=== PATIENT | female | born 1955 | race Caucasian/White ===

== ENCOUNTER → 2018-04-19 13:39 | Outpatient (POV) | payer SELFPAY | PROVIDERS: Visit Provider Dermatology | DX: Z00.00 Encounter for general adult medical examination without abnormal findings (principal) ==

== ENCOUNTER 2018-10-04 11:55 | Observation (INO) ==
--- NOTE | 2018-10-04 11:59 | Emergency Department Note ---
ED Disposition Clinical Impression: Chest pain, precordial, Hyponatremia, Hypokalemia Disposition: Admitted as Observation Condition on Discharge: Good - Critical Care Critical Care Time: No Attestation: On , the high probability of a clinically significant, sudden or life threatening deterioration of the following system(s) required my full and direct attention, intervention and personal management. The time I documented below is in addition to time spent performing reported procedures but includes the following listed in this critical care notation. Medical Decision Making - Aguilar Inquiry Pt receiving controlled substance: No Vital Signs: 10/04/18 12:00 10/04/18 12:25 10/04/18 13:30 Temperature 99.4 F Temperature Source Oral Pulse Rate Pulse Rate [Left Radial] 96 H 93 H 86 Respiratory Rate 16 19 18 Blood Pressure Blood Pressure [Right Arm] 170/63 H 138/72 156/72 H Blood Pressure Mean [Right Arm] 98 94 100 Blood Pressure Source Blood Pressure Source [Right Arm] Automatic Cuff Automatic Cuff Automatic Cuff Blood Pressure Position Blood Pressure Position [Right Arm] Sitting Sitting Sitting 02 Sat by Pulse Oximetry 98 96 95 Oxygen Delivery Method Room Air Room Air Room Air 10/04/18 14:30 10/04/18 15:23 10/04/18 15:51 Temperature 98 F Temperature Source Oral Pulse Rate 78 Pulse Rate [Left Radial] 87 89 Respiratory Rate 16 18 16 Blood Pressure 161/86 H Blood Pressure [Right Arm] 138/71 144/75 H Blood Pressure Mean [Right Arm] 93 98 Blood Pressure Source Automatic Cuff Blood Pressure Source [Right Arm] Automatic Cuff Automatic Cuff Blood Pressure Position Sitting Blood Pressure Position [Right Arm] Sitting Sitting 02 Sat by Pulse Oximetry 97 94 L Oxygen Delivery Method Room Air Room Air Room Air - Lab Data Lab Results 10/04/18 11:55: WBC 8.7, RBC 4.79, Hgb 14.1, Hct 42.9, MCV 89.6, MCH 29.3, MCHC 32.7, RDW 13.3, Plt Count 259, MPV 7.6, Neut % (Auto) 72.1, Lymph % (Auto) 20.7, Granite % (Auto) 6.4, Eos % (Auto) 0.6, Baso % (Auto) 0.3, Neut # (Auto) 6.3, Lymph # (Auto) 1.8, Gran[place] # (Auto) 0.6, Eos # (Auto) 0.1, Baso # (Auto) 0.0 10/04/18 11:55: Sodium 127 L, Potassium 3.3 L, Chloride 89 L, Carbon Dioxide 30, Anion Gap 11.3, BUN 8, Creatinine 0.56, Estimated Creat Clear 47, Estimated GFR 109, Est GFR ( Amer) 132, Glucose 126 H, Calcium 9.4, Troponin I 0.03 10/04/18 11:55: TSH 1.02, Free T4 Index 4.0 L, Thyroxine (T4) 10.3, T3 Uptake 39 10/04/18 11:55: D-Dimer < 100 10/04/18 14:56: Troponin I 0.11 H Result diagrams: 10/04/18 11:55 10/04/18 11:55 Orders (Tests/Meds): ED MEDICATIONS Generic Name Dose Route Start Last Admin Trade Name Freq PRN Reason Stop Dose Admin Acetaminophen 650 mg 10/04/18 15:13 Acetaminophen 325mg Tab PO 11/03/18 15:12 Q4HP PRN As Needed for Fever or Pain Hydrochlorothiazide 12.5 mg 10/05/18 09:00 Hctz 12.5mg Capsule PO 11/04/18 08:59 DAILY DILCIA Sodium Chloride 1,000 mls @ 50 mls/hr 10/04/18 16:45 10/04/18 16:53 Sod Chlor 0.9% 1000ml Bag IV 11/03/18 16:44 50 mls/hr .Q20H DILCIA Administration Irbesartan 300 mg 10/05/18 09:00 Avapro 300mg Tablet PO 11/04/18 08:59 DAILY DILCIA Lorazepam 1 mg 10/04/18 18:15 Ativan 1mg Tablet PO 11/03/18 18:14 ONCE PRN Anxiety Ondansetron HCl 4 mg 10/04/18 15:13 Zofran 4mg/2ml Vial IV 11/03/18 15:12 Q8HP PRN Nausea Discontinued Medications Generic Name Dose Route Start Last Admin Trade Name Freq PRN Reason Stop Dose Admin Lorazepam 1 mg 10/04/18 15:38 10/04/18 15:48 Ativan 1mg Tablet PO 10/04/18 15:39 1 mg ONCE ONE Administration Potassium Chloride 40 meq 10/04/18 12:32 10/04/18 13:24 Klor-Con 20meq Tablet PO 10/04/18 12:33 40 meq ONCE ONE Administration ORDERS Category Date Time Status Consult to Cardiology [CONS] Routine Cons 10/04/18 15:13 Active Basic Metabolic Panel AMLAB Lab 10/05/18 06:00 Ordered Troponin I Q3H Lab 10/04/18 21:15 Ordered ECG Request by /Sanju Stat Y 10/04/18 11:56 Stop Req - Radiology Data #1 Image(s): Chest Image Reviewed: Yes I have reviewed radiologist's interpretation IMPRESSION: No acute finding. Nodularity left lung base. Stability may be confirmed with follow-up Dictated by: Sekou Quijano MD 10/04/2018 13:03 - ECG Data Tracing #1 EKG interpreted by Guido Marie MD: Rhythm: sinus Rate: 92 Phelps: normal Ectopy: none Conduction: normal ST Segment Changes: none T Wave Changes: none Q Waves: none No evidence of acute ischemia or injury Normal electrocardiogram - Physician Consults Physician Consulted: ZAIRA Hastings, for Dr. Grimm Time: 13:33 Reason -: Cardiology Eval/Care Comment/Response: States that patient can be admitted for evaluation or if patient does not want to be admitted, recommends echocardiogram and second troponin and follow-up as an outpatient if normal. I discussed with patient and , they prefer admission. Call placed to medicine service call. Additional Consult: Maren Time: 15:03 Reason -: Admission Comment/Response: Agrees to admit the patient to the hospital. We discussed the patient's clinical information, including history, exam, laboratory and radiology results and ED course. Per hospital procedure, I will write temporary bridge inpatient orders on the patient. Specific orders requested by the admitting physician: Serial troponins. Hold antihypertensive at this time due to electrolyte abnormalities, he will review meds. - Reevaluation(s) Time: 15:39 Reevaluation #1: Patient states she needs something for her nerves so that she can sleep. Would like it right now. - HARJIT Score for Non-Stemi Age of Patient: 60-69 years old Heart Rate: 90-109 bpm Systolic Blood Pressure: 160-199 mmHg Serum Creatinine: 0.40-0.79 mg/dl CHF Killip Class: I-No CHF Other Risk Factors: None Non-Stemi Risk Score: 87 General Adult HPI - General Stated complaint: Chest Pain Time Seen by Provider: 10/04/18 11:58 - History of Present Illness HPI narrative: Brought in by ambulance for chest discomfort. States that since yesterday evening she has had a sensation that her heart is racing and has a discomfort in the center of her chest that feels like a pressure. Some increase with a deep breath. States symptoms have been present ever since onset, and not going completely away, but waxing and waning. Says that she was not able to sleep all night due to the symptoms. She also feels anxious. She says she feels short of breath off and on. She has no known heart problems. Non-smoker. She has prediabetes, no medications for that. She is treated for hypertension. Denies hyperlipidemia. Family history positive for coronary artery disease in brother's parents. She does not think any of their problem started at a young age. She has never had a stress test or heart catheter her knowledge. - Related Data Home Medications Medication Instructions Recorded Confirmed Fexofenadine HCl [Allergy Relief] 180 mg PO DAILYP PRN 10/04/18 10/04/18 Valsartan/Hydrochlorothiazide 1 tab PO DAILY 10/04/18 10/04/18 [Valsartan-Hctz 320-12.5 mg Tab] Allergies Allergy/AdvReac Type Severity Reaction Status Date / Time No Known Allergies Allergy Verified 10/04/18 12:06 [facility] History - Hepatitis A Screen Attestation statement:: This patient has been screened for Hepatitis A risk factors. Medical History: Reports:: Hypertension Denies:: Congestive Heart Failure, Coronary Artery Disease, Diabetes Mellitus Type 1, Diabetes Mellitus Type 2, Hyperlipidemia Other Medical History: Reports: Thyroid Disease (nodule) ROS Obtained: Yes All systems reviewed & no additional complaints - Constitutional Constitutional: Denies fever(s) - Cardiovascular Cardiovascular: Reports chest pain, Denies diaphoresis, Reports rapid heart rate - Respiratory Respiratory: No cough, Yes dyspnea - Gastrointestinal Gastrointestingal: Denies: abdominal pain, diarrhea, nausea, vomiting Physical Exam - General General appearance: alert, in no apparent distress - Head Head exam: atraumatic, normocephalic - Eye Eye exam: Present: normal appearance, EOMI - ENT ENT exam: Present: mucous membranes moist - Neck Neck exam: Present: normal inspection, trachea midline - Chest Chest inspection: Present: normal inspection, symmetric chest wall rise - Respiratory Respiratory exam: Present: normal lung sounds bilaterally. Absent: respiratory distress - Cardiovascular Cardiovascular exam: Present: regular rate, normal rhythm, normal heart sounds - Abdominal Exam Abdominal exam: Present: soft, normal bowel sounds. Absent: distention, tenderness - Extremities Exam Extremities exam: Present: normal inspection. Absent: calf tenderness - Neurological Exam Neurological exam: Present: alert, oriented X3 - Psychiatric Psychiatric exam: Present: normal affect, normal mood - Skin Skin exam: Present: warm, dry
[2018-10-04 12:14] LABS: Basophils % 0.3 % (0.1-2.0); Eosinophils # 0.1 K/mm3 (0.0-0.4); Eosinophils % 0.6 % (0.1-12.0); Hematocrit 42.9 % (37.0-47.0); Hemoglobin 14.1 g/dL (12.2-16.2); Lymphocytes # 1.8 K/mm3 (0.7-4.5); Lymphocytes % 20.7 % (10-50); Mean Corpuscular HGB Conc 32.7 g/dL (31.8-35.4); Mean Corpuscular Volume 89.6 fl (81-99); Mean Platelet Volume 7.6 fl (7.4-10.4); Monocytes # 0.6 K/mm3 (0.1-1.0); Monocytes % 6.4 % (1.7-9.3); Neutrophils # 6.3 K/mm3 (1.8-7.8); Neutrophils % 72.1 % (37.0-80.0); Platelet Count 259 K/mm3 (142-424); Red Blood Count 4.79 M/mm3 (4.20-5.40); Red Cell Distribution Width 13.3 % (11.5-17.5); White Blood Count 8.7 K/mm3 (4.8-10.8)
[2018-10-04 12:28] LABS: Anion Gap 11.3 mEq/L (5-15); Calcium 9.4 mg/dL (8.5-10.1)
[2018-10-04 12:35] LABS: Thyroid Stimulating Hormone 1.02 uIU/ml (0.358-3.740)
--- NOTE | 2018-10-04 15:35 | Pharmacy Consult Notes ---
[facility] Pharmacy VTE Monitoring - Patient Demographics Admission date: 10/04/18 Report Date: 10/04/18 Time: 15:34 Allergies/Adverse Reactions: Patient Allergies No Known Allergies Allergy (Verified 10/04/18 12:06) Height: 1.57 m Weight: 52.163 kg Patient Problems: Current Active Problems Chest pain, precordial (Acute) Hyponatremia (Acute) Hypokalemia (Acute) - VTE Risk Labs: VTE Related Lab Results Hgb 14.1 g/dL (12.2-16.2) 10/04/18 11:55 Hct 42.9 % (37.0-47.0) 10/04/18 11:55 Plt Count 259 K/mm3 (142-424) 10/04/18 11:55 BUN 8 mg/dL (7-18) 10/04/18 11:55 Creatinine 0.56 mg/dL (0.55-1.02) 10/04/18 11:55 Estimated Creat Clear 47 mL/min (50-200) 10/04/18 11:55 - Prophylaxis VTE Prophylaxis Ordered?: Yes Types of VTE Prophylaxis: TEDS Knee High Location of Applied Device: Bilateral Lower Extremeties
--- NOTE | 2018-10-04 16:59 | Consult Report ---
History of Present Illness Consult date: 10/04/18 Requesting physician: Real Engel Consult reason: chest pain Chief complaint: Chest pain Additional Medical History:: 1. Family history of coronary artery disease in their 50s and 60s 2. Hypertension, treated for many years 3. Prediabetes, diagnosed approximately 3 years ago, treated with weight loss and dietary changes 4. Remote tobacco use, [id number]-aewk history, discontinued 13 years ago 5. Anxiety History of present illness: 62-year-old white female transported to the emergency department via EMS due to recurrent chest pain. Chest pain described as substernal pressure and pain sensation without radiation. She does note some diaphoresis and nausea without vomiting or diarrhea. Symptoms started yesterday and would wax and wane with exercise or activity and improve with rest. No prior history of coronary artery disease. She does endorse a significant amount of anxiety over the chest pain which prompted calling EMS for transportation. EKG in the ER was sinus rhythm with no acute ST segment changes. Initial troponin is within normal limits. Cardiology was consulted for evaluation and recommendations. [facility] History Medical History: Reports:: Hypertension Denies:: Congestive Heart Failure, Coronary Artery Disease, Diabetes Mellitus Type 1, Diabetes Mellitus Type 2, Hyperlipidemia *Have you ever received a pneumonia vaccine?: No *Have you received a flu vaccine this season?: Yes Other Medical History: Reports: Thyroid Disease (nodule) - *Social History Alcohol Intake: never *Occupational Status:: other *Travel in the last 8 weeks: None Family Hx:: Coronary Artery Disease Meds Home Medications Medication Instructions Recorded Confirmed Type Fexofenadine HCl [Allergy Relief] 180 mg PO DAILYP PRN 10/04/18 10/04/18 History Valsartan/Hydrochlorothiazide 1 tab PO DAILY 10/04/18 10/04/18 History [Valsartan-Hctz 320-12.5 mg Tab] Allergies Allergy/AdvReac Type Severity Reaction Status Date / Time No Known Allergies Allergy Verified 10/04/18 12:06 Review of Systems - *Cardiovascular Reports chest pain, Denies shortness of breath, Denies slow heart rate - *Respiratory Denies cough, Denies shortness of breath - *Gastrointestinal Reports nausea, Denies abdominal pain, Denies vomiting - *Genitourinary Denies blood in urine - *Musculoskeletal Denies joint pain, Denies back pain - *Neurologic Denies unsteadiness, Denies dizziness, Denies tingling, Denies tremor(s) Exam Vital signs and Labs for Last 24 Hours: Temp Pulse Resp BP Pulse Ox 98.3 F 91 H 18 146/83 H 97 10/04/18 16:06 10/04/18 16:06 10/04/18 16:06 10/04/18 16:06 10/04/18 16:06 Laboratory Results - last 24 hr 10/04/18 11:55: WBC 8.7, RBC 4.79, Hgb 14.1, Hct 42.9, MCV 89.6, MCH 29.3, MCHC 32.7, RDW 13.3, Plt Count 259, MPV 7.6, Neut % (Auto) 72.1, Lymph % (Auto) 20.7, Price % (Auto) 6.4, Eos % (Auto) 0.6, Baso % (Auto) 0.3, Neut # (Auto) 6.3, Lymph # (Auto) 1.8, Price # (Auto) 0.6, Eos # (Auto) 0.1, Baso # (Auto) 0.0 10/04/18 11:55: Sodium 127 L, Potassium 3.3 L, Chloride 89 L, Carbon Dioxide 30, Anion Gap 11.3, BUN 8, Creatinine 0.56, Estimated Creat Clear 47, Estimated GFR 109, Est GFR ( Amer) 132, Glucose 126 H, Calcium 9.4, Troponin I 0.03 10/04/18 11:55: TSH 1.02, Free T4 Index 4.0 L, Thyroxine (T4) 10.3, T3 Uptake 39 10/04/18 11:55: D-Dimer < 100 I & O for Last 24 hours: Intake & Output 10/02/18 10/03/18 10/04/18 10/05/18 11:59 11:59 11:59 11:59 Weight 112 lb 9 oz - *Routine HEENT Exam Head: Present: normocephalic Eye: Present: EOMI, PERRL ENT: Present: mucous membranes moist - *Routine Neck Exam Present: supple. Absent: JVD, carotid bruit - *Routine Respiratory Exam Present: CTA bilaterally. Absent: accessory muscle use, rales, rhonchi, wheezes - *Routine Cardiovascular Exam Present: RRR. Absent: murmur, gallop, rubs - *Routine Abdominal Exam Present: soft. Absent: tenderness, distended, guarding - *Routine Extremities Exam Absent: edema, calf tenderness - *Routine Neurological Exam Present: alert, oriented X3, moving all extremities Assessment and Plan (1) Chest pain, precordial Current visit: Yes Status: Acute Category: Medical Code(s): R07.2 - Precordial pain (2) Hypertension Current visit: Yes Status: Acute Category: Medical Code(s): I10 - Essential (primary) hypertension (3) Hypokalemia Current visit: Yes Status: Acute Category: Medical Code(s): E87.6 - Hypokalemia (4) Hyponatremia Current visit: Yes Status: Acute Category: Medical Code(s): E87.1 - Hypo- osmolality and hyponatremia - Assessment and plan all Dx Assessment and Plan for all problems:: 1. 62-year-old white female with recurrent chest pain and Ann score of 87. Patient with cardiac risk factors of family history, hypertension, prediabetes and remote tobacco use. Preliminary echocardiogram showed preserved left ventricular ejection fraction. Initial troponin is normal with no acute EKG changes. Would recommend proceeding with exercise Myoview stress testing tomorrow for further evaluation and risk stratification. We will hold off on adding beta-panfilo therapy in order to achieve target heart rate. Consider Norvasc therapy if needed for chest pain but currently patient is pain-free. 2. Further recommendations to follow pending above results.
--- NOTE | 2018-10-04 18:09 | History & Physical Report ---
*Admission Date: 10/04/18 *Chief complaint: chest pain *History of present illness: Ms. Marie is a 62-year-old white female who was brought to the ER by ambulance due to recurrent chest pain. She states that she had a stressful situation today causing significant anxiety preceding her onset of chest pain. Chest pain described as substernal pressure and pain sensation without radiation. She does note some diaphoresis and nausea with 2 episodes of heaving/vomiting. Denies any diarrhea. Symptoms started yesterday and would wax and wane with exercise or activity and improve with rest. No prior history of coronary artery disease. EKG in the ER was sinus rhythm with no acute ST segment changes. Initial troponin is within normal limits. Cardiology was consulted for evaluation and recommendations. Medicine was consulted for admission. Cardiology saw the patient this afternoon and recommended serial troponins. Will monitor overnight and reassess in the morning. Patient denies, at time of assessment on the floor, chest pain, shortness of breath, nausea, vomiting. Feels at baseline right now. Does state she is having some anxiety however and has asked for some as needed medication like she gone the ER to help if she has issues overnight. [facility] History I have reviewed the patient's past medical history: Yes Medical History: Reports:: Hypertension Denies:: Cancer, Congestive Heart Failure, Coronary Artery Disease, Diabetes Mellitus Type 1, Diabetes Mellitus Type 2, Hyperlipidemia, MRSA *Have you ever received a pneumonia vaccine?: No *Have you received a flu vaccine this season?: Yes Other Medical History: Reports: Thyroid Disease (nodule) Other Surgeries: Yes: Cholecystectomy Amputation: No Fractures: No - *Social History Educational Level: Attended High School Smoking Status: Former smoker Smoking End Date: 2002 Alcohol Intake: never *Occupational Status:: other Housing: house Household Members: spouse *Travel in the last 8 weeks: None - Psychiatric History Expresses thoughts of harming self/others: None Suicide Plan Description: No Plan Family Hx:: Coronary Artery Disease Review of Systems - Review of Systems Review of systems:: pertinent systems reviewed and negative unless documented below - *Neurologic Denies unsteadiness, Denies dizziness, Denies tingling, Denies tremor(s) Meds Home Medications Medication Instructions Recorded Confirmed Type Fexofenadine HCl [Allergy Relief] 180 mg PO DAILYP PRN 10/04/18 10/04/18 History Valsartan/Hydrochlorothiazide 1 tab PO DAILY 10/04/18 10/04/18 History [Valsartan-Hctz 320-12.5 mg Tab] Allergies Allergy/AdvReac Type Severity Reaction Status Date / Time No Known Allergies Allergy Verified 10/04/18 12:06 Exam Vital signs and Labs for Last 24 Hours: Temp Pulse Resp BP Pulse Ox 98.3 F 91 H 18 146/83 H 97 10/04/18 16:06 10/04/18 17:06 10/04/18 17:06 10/04/18 16:06 10/04/18 17:06 Laboratory Results - last 24 hr 10/04/18 11:55: WBC 8.7, RBC 4.79, Hgb 14.1, Hct 42.9, MCV 89.6, MCH 29.3, MCHC 32.7, RDW 13.3, Plt Count 259, MPV 7.6, Neut % (Auto) 72.1, Lymph % (Auto) 20.7, [place] % (Auto) 6.4, Eos % (Auto) 0.6, Baso % (Auto) 0.3, Neut # (Auto) 6.3, Lymph # (Auto) 1.8, [place] # (Auto) 0.6, Eos # (Auto) 0.1, Baso # (Auto) 0.0 10/04/18 11:55: Sodium 127 L, Potassium 3.3 L, Chloride 89 L, Carbon Dioxide 30, Anion Gap 11.3, BUN 8, Creatinine 0.56, Estimated Creat Clear 47, Estimated GFR 109, Est GFR ( Amer) 132, Glucose 126 H, Calcium 9.4, Troponin I 0.03 10/04/18 11:55: TSH 1.02, Free T4 Index 4.0 L, Thyroxine (T4) 10.3, T3 Uptake 39 10/04/18 11:55: D-Dimer < 100 I & O for Last 24 hours: Intake & Output 10/01/18 10/02/18 10/03/18 10/04/18 23:59 23:59 23:59 23:59 Intake Total 360 / 360 Balance 360 / 360 Weight 51.057 kg - *Routine HEENT Exam Head: Present: normocephalic Eye: Present: EOMI, PERRL ENT: Present: mucous membranes moist - *Routine Neck Exam Present: supple. Absent: lymphadenopathy - *Routine Respiratory Exam Present: CTA bilaterally - *Routine Cardiovascular Exam Present: RRR - *Routine Abdominal Exam Present: soft, normoactive bowel sounds. Absent: tenderness - *Routine Extremities Exam Absent: cyanosis, clubbing, edema - *Routine Skin Exam Present: warm. Absent: rash - *Routine Neurological Exam Present: alert, oriented X3 Assessment and Plan (1) Chest pain, precordial Current visit: Yes Status: Acute Category: Medical Code(s): R07.2 - Precordial pain (2) Hypertension Current visit: Yes Status: Acute Category: Medical Code(s): I10 - Essential (primary) hypertension (3) Hypokalemia Current visit: Yes Status: Acute Category: Medical Code(s): E87.6 - Hypokalemia (4) Hyponatremia Current visit: Yes Status: Acute Category: Medical Code(s): E87.1 - Hypo- osmolality and hyponatremia - Assessment and plan all Dx Assessment and Plan for all problems:: Admitted to medicine for serial troponins. Address electrolyte disturbances with fluids. Ativan for anxiety x1. Cardiology consulted. Further management pending overnight monitoring and lab results. If remains stable, would benefit from outpatient stress test and optimization of medical management/anxiety.
[2018-10-05 06:25] LABS: Anion Gap 8.2 mEq/L (5-15); Calcium 9.1 mg/dL (8.5-10.1)
--- NOTE | 2018-10-05 06:26 | Cardiology Report ---
APPROVED REPORT EXAM: Comprehensive 2D, Doppler, and color-flow Echocardiogram [employer]visor [employer]: Fernanda Kessler RT(R) Ht: 5 ft 2 in Wt: 115lbs BSA: 1.51 BP: 53218/72 mmHg Indications: Chest Pain, Palpitations, Dyspnea, Fatigue, Hypertension/HDD Left Ventricle Left ventricle is normal size Estimated ejection fraction of 55% Left ventricular wall thickness is normal No regional wall motion abnormality Grade 1 diastolic dysfunction without tissue Doppler evidence of raise left atrial pressure. Right Ventricle Mildly enlarged Normal function Atria Mildly enlarged Aortic Valve Minimally thickened and calcified No aortic stenosis No aortic insufficiency Mitral Valve Mitral valve leaflets are minimally thickened No mitral stenosis Mild mitral regurgitation Tricuspid Valve Normal Mild Pulmonic Valve Not well visualized Great Vessels Normal size Pericardium No significant pericardial effusion 2D Dimensions LVOT 1.90 cm (M/F) 1.5-2.5 M-Mode Dimensions RVDd 1.80 cm (0.9-2.6)LA Diam 2.50 cm (1.9-4.0) LVDd 4.40 cm (3.5-5.7)Ao Diam 2.30 cm (2.0-3.7) LVDs 3.10 cm (3.5-5.7)AV Cusp 1.70 cm (1.5-2.6) IVSd 0.50 cm (0.6-1.1)PWd 0.90 cm (0.6-1.1) EF (Teich) 56.80% FS 29.50% EDV (Teich) 87.70 mLESV (Teich) 37.90 mL LV Diastology E/A Ratio 1.0MED E' 11.00 (< 7 cm/sec) E'/MED E' Ratio8.00 (>14)LAT E' 18.00 (<10 cm/sec) E/LAT E' Ratio 4.90 (>14) Mitral Valve MV E Max Chris. 87.90 (40-130 cm/s)MV A Velocity 88.80 (40-130 cm/s) E/A Ratio 1.00 Conclusion 1. Normal left ventricular size, preserved left ventricular systolic function, visually estimated ejection fraction of 55% with no regional wall motion abnormality. Grade 1 diastolic dysfunction without tissue Doppler evidence of raise left atrial pressure 2. Mildly enlarged right ventricle with normal contractility. 3. Mild mitral and tricuspid regurgitation, tricuspid regurgitation jet velocity is inadequate for calibration of the right ventricular systolic pressure. 4. No significant pericardial effusion noted Electronically signed by : Josh Kearney, 10/05/2018 06:25:14
--- NOTE | 2018-10-05 09:33 | Progress Note ---
Subjective Date: 10/05/18 Time: 09:30 Principal diagnosis: chest pain Interval history: This is 62-year-old white female who presented to the emergency department with complaints of chest pain. She was having substernal chest pressure without any radiation. It was associated with diaphoresis and nausea. The symptoms occurred with exertion and did improve with rest. The patient is undergoing Myoview stress testing this morning to rule out ischemia. She did rule out for an CA. She denies any recurrence of her chest pain or pressure this morning. She denies any shortness of breath or edema. She denies any fever, chills, nausea, vomiting, diarrhea, PND or orthopnea. Exam Vital signs and Labs for Last 24 Hours: Temp Pulse Resp BP Pulse Ox 97.9 F 86 16 132/68 91 L 10/05/18 04:00 10/05/18 04:00 10/05/18 04:00 10/05/18 09:25 10/05/18 04:00 Laboratory Results - last 24 hr 10/04/18 11:55: WBC 8.7, RBC 4.79, Hgb 14.1, Hct 42.9, MCV 89.6, MCH 29.3, MCHC 32.7, RDW 13.3, Plt Count 259, MPV 7.6, Neut % (Auto) 72.1, Lymph % (Auto) 20.7, [place] % (Auto) 6.4, Eos % (Auto) 0.6, Baso % (Auto) 0.3, Neut # (Auto) 6.3, Lymph # (Auto) 1.8, [place] # (Auto) 0.6, Eos # (Auto) 0.1, Baso # (Auto) 0.0 10/04/18 11:55: Sodium 127 L, Potassium 3.3 L, Chloride 89 L, Carbon Dioxide 30, Anion Gap 11.3, BUN 8, Creatinine 0.56, Estimated Creat Clear 47, Estimated GFR 109, Est GFR ( Amer) 132, Glucose 126 H, Calcium 9.4, Troponin I 0.03 10/04/18 11:55: TSH 1.02, Free T4 Index 4.0 L, Thyroxine (T4) 10.3, T3 Uptake 39 10/04/18 11:55: D-Dimer < 100 10/04/18 14:56: Troponin I 0.11 H 10/04/18 18:18: Troponin I 0.11 H 10/04/18 21:22: Troponin I 0.11 H 10/05/18 05:26: Sodium 133 L, Potassium 4.2 D, Chloride 100, Carbon Dioxide 29, Anion Gap 8.2, BUN 7, Creatinine 0.51 L, Estimated Creat Clear 46, Estimated GFR 122, Est GFR ( Amer) 147, Glucose 97 D, Calcium 9.1 I & O for Last 24 hours: Intake & Output 10/02/18 10/03/18 10/04/18 10/05/18 23:59 23:59 23:59 23:59 Intake Total 360 / 360 550 / 550 Balance 360 / 360 550 / 550 Weight 112 lb 9 oz 112 lb 5 oz Narrative: Telemetry strip is sinus rhythm. - *Routine HEENT Exam Head: Present: normocephalic, atraumatic Eye: Present: EOMI, PERRL ENT: Present: mucous membranes moist - *Routine Neck Exam Present: supple, full ROM, normal carotid upstroke. Absent: JVD, carotid bruit, lymphadenopathy - *Routine Respiratory Exam Present: CTA bilaterally - *Routine Cardiovascular Exam Present: RRR, Normal S1, Normal S2. Absent: murmur - *Routine Abdominal Exam Present: soft, normoactive bowel sounds. Absent: tenderness, distended - *Routine Extremities Exam Present: full ROM, pulses intact, normal capillary refill. Absent: cyanosis, clubbing, edema - *Routine Skin Exam Present: intact, warm. Absent: erythema, rash - *Routine Neurological Exam Present: alert, oriented X3, CN II-XII intact. Absent: sensory deficit, motor deficit - Detailed Eye Exam Eyelids: Left normal inspection Progress Note: A&P (1) Chest pain, precordial Status: Acute Current Visit: Yes (2) Hypertension Status: Acute Current Visit: Yes (3) Hypokalemia Status: Acute Current Visit: Yes (4) Hyponatremia Status: Acute Current Visit: Yes Assessment and Plan for All Diagnoses:: Plan: 1. The patient was admitted to the hospital with chest pain. She has ruled out for myocardial infarction. Patient is undergoing a Myoview stress test this morning to rule out ischemia. 2. Her echocardiogram shows normal EF with diastolic dysfunction and mild mitral regurgitation. 3. Her blood pressure is well controlled. 4. Her LDL goal is less than 100. We will add a lipid panel to her blood work. 5. Recommend aspirin 81 mg daily. 6. Further recommendations will be made pending the patient's results of her Myoview stress testing today. Thank you for the opportunity to participate in the care of this patient. Addendum: Myoview stress test was normal. No further recommendations from a cardiac standpoint. Pt stable for discharge home from a cardiac standpoint.
--- NOTE | 2018-10-05 13:23 | Discharge Summary ---
General - General Admission date:: 10/04/18 Discharge date: 10/05/18 HPI HPI: Ms. Marie is a 62-year-old white female who was brought to the ER by ambulance due to recurrent chest pain. She states that she had a stressful situation today causing significant anxiety preceding her onset of chest pain. Chest pain described as substernal pressure and pain sensation without radiation. She does note some diaphoresis and nausea with 2 episodes of heaving/vomiting. Denies any diarrhea. Symptoms started yesterday and would wax and wane with exercise or activity and improve with rest. No prior history of coronary artery disease. EKG in the ER was sinus rhythm with no acute ST segment changes. Initial troponin is within normal limits. Cardiology was consulted for evaluation and recommendations. Medicine was consulted for admission. Cardiology saw the patient this afternoon and recommended serial troponins. Will monitor overnight and reassess in the morning. Patient denies, at time of assessment on the floor, chest pain, shortness of b reath, nausea, vomiting. Feels at baseline right now. Does state she is having some anxiety however and has asked for some as needed medication like she gone the ER to help if she has issues overnight. Hospital Course Hospital Course: Patient was admitted, ruled out for AR by enzyme and EKG criteria. This morning was subjected to Lexiscan nuclear medicine by stress test with excellent results, good flow and no evidence of ischemic heart disease. Patient will be discharged home with blood pressure medication without HCTZ component given her admission hypokalemia and hyponatremia. We will also recommend low-dose aspirin therapy. She has significant anxiety issues and did very well with lorazepam last night and "I need to get a prescription of that for home." I do not think long-term benzodiazepine use is in her best interest, and I have prescribed buspirone 2 times daily as needed. Obviously she will follow-up with her regular physician to make this decision. Objective Vital signs: Temp Pulse Resp BP Pulse Ox 97.9 F 104 H 16 132/68 91 L 10/05/18 04:00 10/05/18 10:27 10/05/18 04:00 10/05/18 09:25 10/05/18 04:00 no acute distress, average body habitus - *Routine HEENT Exam Head: Present: normocephalic Eye: Present: EOMI, PERRL - *Routine Neck Exam Present: supple. Absent: JVD - *Routine Respiratory Exam Present: CTA bilaterally. Absent: accessory muscle use - *Routine Cardiovascular Exam Present: RRR, Normal S1, Normal S2 - *Routine Abdominal Exam Present: soft, normoactive bowel sounds - *Routine Extremities Exam Present: full ROM. Absent: cyanosis, clubbing, edema - *Routine Skin Exam Present: intact - *Routine Neurological Exam Present: alert, oriented X3 Results Labs on day of discharge: Labs from last 24 hours 10/05/18 10/04/18 10/04/18 05:26 21:22 18:18 Sodium 133 L Potassium 4.2 D Chloride 100 Carbon Dioxide 29 Anion Gap 8.2 BUN 7 Creatinine 0.51 L Estimated Creat Clear 46 Estimated GFR 122 Est GFR ( Amer) 147 Glucose 97 D Calcium 9.1 Troponin I 0.11 H 0.11 H 10/04/18 14:56 Sodium Potassium Chloride Carbon Dioxide Anion Gap BUN Creatinine Estimated Creat Clear Estimated GFR Est GFR ( Amer) Glucose Calcium Troponin I 0.11 H DS: Diagnosis - Discharge Diagnosis (1) Chest pain, precordial Status: Resolved (2) Hypertension Status: Chronic (3) Hypokalemia Status: Resolved (4) Hyponatremia Status: Resolved Discharge Plan - Patient Discharge Instructions ACTIVITY: Continue current activity DIET: continue same diet Patient Instructions: DI for Hypokalemia, DI for Hyponatremia, DI for Chest Pain - Follow up Plan Follow up with: Joleen Jacinto [Primary Care Provider] - 10/10/18 Disposition: Home, Self-Fpc Medications: Home Medications Medication Instructions Recorded Confirmed Type Fexofenadine HCl [Allergy Relief] 180 mg PO DAILYP PRN 10/04/18 10/04/18 History Valsartan/Hydrochlorothiazide 1 tab PO DAILY 10/04/18 10/04/18 History [Valsartan-Hctz 320-12.5 mg Tab] Aspirin [Aspir 81] 81 mg PO DAILY #30 tablet. 10/05/18 Rx Buspirone HCl [Buspar 10mg 10 mg PO BID PRN #20 tab 10/05/18 Rx tablet] Valsartan [Valsartan 160mg 320 mg PO DAILY #30 tab 10/05/18 Rx Tablets] Prescriptions/Medication Reconciliation: New Aspirin [Aspir 81] 81 mg PO DAILY #30 tablet. Buspirone HCl [Buspar 10mg tablet] 10 mg PO BID PRN #20 tab PRN Reason: Anxiety Valsartan [Valsartan 160mg Tablets] 320 mg PO DAILY #30 tab Continued Fexofenadine HCl [Allergy Relief] 180 mg PO DAILYP PRN PRN Reason: ALLERGY SYMPTOMS Discontinued Valsartan/Hydrochlorothiazide [Valsartan-Hctz 320-12.5 mg Tab] 1 tab PO DAILY - Problem Reconciliation Problems Reviewed?: Yes
--- NOTE | 2018-10-05 14:21 | Electrocardiograph Report ---
APPROVED REPORT Exam: Resting ECG HR:92 bpm ECG Measurements Heart Rate 92 AXES MI 156 P 78 QRSd 86 QRS 43 QT 388 T68 QTc 479 <Conclusion> Normal sinus rhythm Normal ECG Electronically signed by : Marky Solis, 10/05/2018 13:51:10
[2018-10-05 15:18] LABS: Chol/HDL Ratio 1.9 (1-3.5)
--- NOTE | 2018-10-19 11:45 | Cardiology Report ---
APPROVED REPORT Exam: Exercise Treadmill Technologist: Kenyetta Harvey, Ht: 5 ft 2 in Wt: 112 lbs BSA: 1.49 m2 HR: 91 bpm BP: 143/74 mmHg Rhythm: nsr Indications: Chest pain Medical History Medical History: HTN Medications: Fexofenadine,Valsartan/HCTZ Allergies: No known drug allergies Cardiac Risk Factors: HTN Pretest Chest Pain Characteristics: No chest pain Stress Test Details Test: Tom HR Resting HR: 125 bpmMax Heart Rate (APMHR): 157 bpm Max HR Achieved: 192 bpmTarget HR (85% APMHR): 133 bpm % of APMHR: 122 Recovery HR: 106 bpm HR response to stress: Normal HR response to stress BP Resting BP: 143.0/74 mmHg Max BP: 158/75 mmHg ECG Clinical Stress Symptoms: nausea Exercise duration: 05:30 min Highest Stage Achieved: Exercise capacity: 7.0 METs Stress ECG Conclusion No chest pain. nausea pretest and post test. Allowing for motion artifact the ST response to exercise is normal. Normal GXT - nausea pre and post test. Myoview images reported separately. Electronically signed by : Eyad Grimm, 10/19/2018 11:45:22
== END 2018-10-05 14:15 | disposition home or self-care (01) ==
LOC: ER 11:55 → 2ND 11:55
PROVIDERS: ADMIT Internal Medicine Adolescent Medicine; ATTEND Internal Medicine Adolescent Medicine
CPT/HCPCS: 36415; 71020; 71046; 78452; 80048; 80061; 84436; 84443; 84479; 84484; 85025; 85378; 93005; 93017; 93306; 99284; A9502; G0378

== ENCOUNTER 2020-02-29 22:26 | Emergency (ER) | payer BC, MEDICARE, SELFPAY ==
[2020-02-29 22:42] VITALS: BP 188/88; PULSE 116; RESP 17; TEMP 37.1; O2SAT 98; BMI 21.5
[2020-02-29 22:43] VITALS: BMI 21.5
[2020-02-29 22:54] LABS: Basophils % 0.3 % (0.1-2.0); Eosinophils # 0.1 K/mm3 (0.0-0.4); Eosinophils % 1.2 % (0.1-12.0); Hematocrit 42.8 % (37.0-47.0); Hemoglobin 13.9 g/dL (12.2-16.2); Lymphocytes # 1.2 K/mm3 (0.7-4.5); Lymphocytes % 12.9 % (10-50); Mean Corpuscular HGB Conc 32.5 g/dL (31.8-35.4); Mean Corpuscular Hemoglobin 29.6 pg (27.0-31.2); Mean Corpuscular Volume 91.1 fl (81-99); Mean Platelet Volume 7.6 fl (7.4-10.4); Monocytes # 0.5 K/mm3 (0.1-1.0); Monocytes % 5.3 % (1.7-9.3); Neutrophils # 7.4 K/mm3 (1.8-7.8); Neutrophils % 80.4 % (37.0-80.0); Platelet Count 214 K/mm3 (142-424); Red Cell Distribution Width 13.6 % (11.5-17.5); White Blood Count 9.2 K/mm3 (4.8-10.8)
--- NOTE | 2020-02-29 22:56 | HMH.EDANX ---
ED Disposition Clinical Impression: Acute anxiety, Hyponatremia Disposition: Home, Self-Care Condition on Discharge: Good Instructions: Anxiety Disorders Additional Instructions: please call pcp for follow up Referrals: Joleen Jacinto [Primary Care Provider] - - Critical Care Critical Care Time: No Attestation: On 02/29/20, the high probability of a clinically significant, sudden or life threatening deterioration of the following system(s) required my full and direct attention, intervention and personal management. The time I documented below is in addition to time spent performing reported procedures but includes the following listed in this critical care notation. Medical Decision Making - Medical Records Medical records reviewed: Yes: I reviewed the patient's medical records. - [place] Inquiry Pt receiving controlled substance: No Vital Signs: 02/29/20 22:42 02/29/20 23:31 Temperature 98.7 F Temperature Source Oral Pulse Rate [Right Brachial] 116 H 89 Respiratory Rate 17 18 Blood Pressure [Right Arm] 188/88 H 163/73 H Blood Pressure Mean [Right Arm] 121 103 Blood Pressure Source [Right Arm] Automatic Cuff Automatic Cuff Blood Pressure Position [Right Arm] Sitting Sitting 02 Sat by Pulse Oximetry 98 98 Oxygen Delivery Method Room Air - Lab Data Lab results reviewed: Yes: I reviewed the patient's lab results. Lab Results 02/29/20 22:49: WBC 9.2, RBC 4.70, Hgb 13.9, Hct 42.8, MCV 91.1, MCH 29.6, MCHC 32.5, RDW 13.6, Plt Count 214, MPV 7.6, Neut % (Auto) 80.4 H, Lymph % (Auto) 12.9, [place] % (Auto) 5.3, Eos % (Auto) 1.2, Baso % (Auto) 0.3, Neut # (Auto) 7.4, Lymph # (Auto) 1.2, [place] # (Auto) 0.5, Eos # (Auto) 0.1, Baso # (Auto) 0.0 02/29/20 22:49: Sodium 121 L, Potassium 3.9, Chloride 85 L, Carbon Dioxide 28, Anion Gap 11.9, BUN 14, Creatinine 0.50 L, Estimated Creat Clear 47, Estimated GFR 124, Est GFR ( Amer) 150, Glucose 149 H, Calcium 9.4, Total Bilirubin 1.5 H, AST 33, ALT 24, Alkaline Phosphatase 70, Troponin I < 0.01, Total Protein 8.0, Albumin 4.7, Globulin 3.3 H, Albumin/Globulin Ratio 1.4 02/29/20 22:51: TSH 0.40 L, Thyroxine (T4) 9.3 02/29/20 23:50: Urine Color Yellow, Urine Appearance Clear, Urine pH 7.0, Ur Specific [place] 1.010, Urine Protein Negative, Urine Glucose (UA) Negative, Urine Ketones 1+, Urine Blood 1+, Urine Nitrate Negative, Urine Bilirubin Negative, Urine Urobilinogen 0.2, Ur Leukocyte Esterase Negative, Urine RBC 3-5, Urine WBC Occasional, Ur Squamous Epith Cells 3-5, Urine Bacteria 1+ Result diagrams: 02/29/20 22:49 02/29/20 22:49 Orders (Tests/Meds): ED MEDICATIONS Generic Name Dose Route Start Last Admin Trade Name Freq PRN Reason Stop Dose Admin Sodium Chloride 1,000 mls @ 999 mls/hr 02/29/20 23:45 02/29/20 23:47 Sod Chlor 0.9% 1000ml Bag IV 03/01/20 00:45 999 mls/hr .Q1H1M DILCIA Administration Discontinued Medications Generic Name Dose Route Start Last Admin Trade Name Freq PRN Reason Stop Dose Admin Lorazepam 0.5 mg 03/01/20 00:55 03/01/20 00:56 Lorazepam 0.5mg Tablet PO 03/01/20 00:56 0.5 mg ONCE ONE Administration ORDERS Category Date Time Status Covid-19 Nasal PCR ([facility]) Stat Lab 02/29/20 22:55 Received Troponin I Q3H Lab 03/01/20 02:00 Ordered Troponin I Q3H Lab 03/01/20 05:00 Ordered Medical Decision Narrative: does have low sodium but uncertain as to whether this is causing her sx - discussed with family to discuss meds with her pcp Anxiety HPI - General Chief Complaint: Anxiety Stated Complaint: anxiety, numbness in arms Time Seen by Provider: 02/29/20 22:55 Mode of Arrival: Family Vehicle Source of Information: Patient, Medical Record Limitations: No Limitations Description of Symptoms (Recalled from ER Triage Doc. by RN): pt presents with complaints of worsening anxiety; states she talked to her pcp who put her on vistaril for her nerves to help her sleep. she took one at 2130 without any help.
[2020-02-29 23:02] LABS: Chloride 85 mmol/L (98-107); Potassium 3.9 mmoL/L (3.5-5.1); Sodium 121 mmol/L (136-145)
[2020-02-29 23:04] LABS: Alanine Aminotransferase 24 U/L (12-78); Aspartate Amino Transferase 33 U/L (14-36); Blood Urea Nitrogen 14 mg/dl (7-17); Creatinine Clearance Estimated 47 mL/min (50-200); Estimated Glomerular Filt Rate 124 ml/min (>60); GFR (African American) 150 ML/MIN (>60)
[2020-02-29 23:05] LABS: Albumin Level 4.7 g/dl (3.5-5.0); Albumin/Globulin Ratio 1.4 (1.1-1.8); Alkaline Phosphatase 70 U/L (38-126); Anion Gap 11.9 mEq/L (5-15); Bilirubin,Total 1.5 mg/dl (0.2-1.3); Calcium 9.4 mg/dl (8.4-10.2); Carbon Dioxide 28 mmol/L (22.0-30.0); Globulin 3.3 g/dL (1.3-3.2); Glucose 149 mg/dl (74-100)
[2020-02-29 23:25] LABS: Troponin I < 0.01 ng/ml (0.00-0.034)
[2020-02-29 23:31] VITALS: BP 163/73; PULSE 89; RESP 18; O2SAT 98
[2020-02-29 23:58] LABS: Microscopic, Urine URINE MICROSCOPIC (MICROSCOPIC)
[2020-03-01 00:08] LABS: Appearance,Urine CLEAR (Clear); Bilirubin,Urine Negative (Negative); Blood, Urine 1+ (Negative); Color,Urine YELLOW (Yellow); Glucose,Urine (UA) Negative (Negative); Ketones,Urine 1+ (Negative); Leukocyte Esterase,Urine Negative (Negative); Nitrate,Urine Negative (Negative); Protein,Urine Negative (Negative); Urobilinogen,Urine 0.2 EU/dl (0.2)
[2020-03-01 00:13] LABS: T4 (Thyroxine) 9.3 ug/dl (5.53-11.0)
[2020-03-01 00:17] LABS: Bacteria,Urine 1+ /lpf; WBC,Urine Occasional #/hpf (0-3)
[2020-03-01 01:05] VITALS: BP 157/73; PULSE 76; RESP 16; TEMP 36.7; O2SAT 98
== END 2020-03-01 01:08 | disposition home or self-care (01) ==
PROVIDERS: Emergency Provider Emergency Medicine; PCP Family Medicine
DX: Z20.822 Contact with and (suspected) exposure to COVID-19 (principal); F41.0 Panic disorder [episodic paroxysmal anxiety]; E04.1 Nontoxic single thyroid nodule; I10 Essential (primary) hypertension; E87.1 Hypo-osmolality and hyponatremia; Z79.899 Other long term (current) drug therapy
CPT/HCPCS: 80053; 81001; 84436; 84443; 84484; 85025; 96365; 99283; U0003

== ENCOUNTER 2020-03-04 09:13 | Emergency (ER) | payer MEDICARE, BC, SELFPAY ==
[2020-03-04 09:16] VITALS: BP 168/64; PULSE 93; RESP 16; TEMP 36.8; O2SAT 98; BMI 21.5
[2020-03-04 10:49] LABS: Basophils # 0.1 K/mm3 (0-0.2); Eosinophils # 0.3 K/mm3 (0.0-0.4); Eosinophils % 3.1 % (0.1-12.0); Hematocrit 43.3 % (37.0-47.0); Hemoglobin 14.2 g/dL (12.2-16.2); Lymphocytes # 1.7 K/mm3 (0.7-4.5); Lymphocytes % 17.6 % (10-50); Mean Corpuscular HGB Conc 32.8 g/dL (31.8-35.4); Mean Corpuscular Hemoglobin 30.2 pg (27.0-31.2); Mean Corpuscular Volume 91.9 fl (81-99); Mean Platelet Volume 7.5 fl (7.4-10.4); Monocytes # 0.8 K/mm3 (0.1-1.0); Monocytes % 8.9 % (1.7-9.3); Neutrophils # 6.6 K/mm3 (1.8-7.8); Neutrophils % 69.5 % (37.0-80.0); Platelet Count 215 K/mm3 (142-424); Red Blood Count 4.71 M/mm3 (4.20-5.40); Red Cell Distribution Width 13.7 % (11.5-17.5); White Blood Count 9.4 K/mm3 (4.8-10.8)
[2020-03-04 10:59] LABS: Chloride 90 mmol/L (98-107); Potassium 4.1 mmoL/L (3.5-5.1); Sodium 125 mmol/L (136-145)
[2020-03-04 11:01] LABS: Blood Urea Nitrogen 13 mg/dl (7-17); Creatinine Clearance Estimated 47 mL/min (50-200); Estimated Glomerular Filt Rate 124 ml/min (>60); GFR (African American) 150 ML/MIN (>60)
[2020-03-04 11:02] LABS: Alanine Aminotransferase 25 U/L (12-78); Albumin Level 4.3 g/dl (3.5-5.0); Albumin/Globulin Ratio 1.3 (1.1-1.8); Alkaline Phosphatase 55 U/L (38-126); Anion Gap 9.1 mEq/L (5-15); Aspartate Amino Transferase 33 U/L (14-36); Bilirubin,Total 1.2 mg/dl (0.2-1.3); Calcium 9.4 mg/dl (8.4-10.2); Carbon Dioxide 30 mmol/L (22.0-30.0); Globulin 3.3 g/dL (1.3-3.2); Glucose 134 mg/dl (74-100); Total Protein,Serum 7.6 g/dl (6.3-8.2)
--- NOTE | 2020-03-04 11:09 | PC.NURSE ---
patient up to bathroom at this time
--- NOTE | 2020-03-04 11:13 | HMH.EDGENADL ---
ED Disposition Clinical Impression: Hyponatremia, Difficulty sleeping, Anxiety Disposition: Home, Self-Care Condition on Discharge: Good Additional Instructions: Follow-up with Dr. Jacinto at 1015 tomorrow morning. Return to the emergency room for dizziness generalized weakness headache increased anxiety or any other concerns within the next day. Prescriptions: Melatonin 3 mg PO ONCE PRN 7 Days #7 tab PRN Reason: Insomnia Transmission Status: Received by [facility] #[id number] Referrals: Joleen Jacinto [Primary Care Provider] - - Critical Care Critical Care Time: No Attestation: On 03/04/20, the high probability of a clinically significant, sudden or life threatening deterioration of the following system(s) required my full and direct attention, intervention and personal management. The time I documented below is in addition to time spent performing reported procedures but includes the following listed in this critical care notation. Medical Decision Making - Medical Records Medical records reviewed: Yes: I reviewed the patient's medical records. - [place] Inquiry Pt receiving controlled substance: No Vital Signs: 03/04/20 09:16 03/04/20 14:11 Temperature 98.2 F 98.6 F Temperature Source Oral Oral Pulse Rate 84 Pulse Rate [Right] 93 H Respiratory Rate 16 17 Blood Pressure 175/82 H Blood Pressure [Right Arm] 168/64 H Blood Pressure Mean [Right Arm] 98 Blood Pressure Source [Right Arm] Automatic Cuff Blood Pressure Position [Right Arm] Sitting 02 Sat by Pulse Oximetry 98 Oxygen Delivery Method Room Air Room Air - Lab Data Lab Results 03/04/20 10:39: WBC 9.4, RBC 4.71, Hgb 14.2, Hct 43.3, MCV 91.9, MCH 30.2, MCHC 32.8, RDW 13.7, Plt Count 215, MPV 7.5, Neut % (Auto) 69.5, Lymph % (Auto) 17.6, [place] % (Auto) 8.9, Eos % (Auto) 3.1, Baso % (Auto) 1.0, Neut # (Auto) 6.6, Lymph # (Auto) 1.7, [place] # (Auto) 0.8, Eos # (Auto) 0.3, Baso # (Auto) 0.1 03/04/20 10:39: Sodium 125 L, Potassium 4.1, Chloride 90 L, Carbon Dioxide 30, Anion Gap 9.1, BUN 13, Creatinine 0.50 L, Estimated Creat Clear 47, Estimated GFR 124, Est GFR ( Amer) 150, Glucose 134 H, Calcium 9.4, Magnesium 2.0, Total Bilirubin 1.2, AST 33, ALT 25, Alkaline Phosphatase 55, Total Protein 7.6, Albumin 4.3, Globulin 3.3 H, Albumin/Globulin Ratio 1.3, TSH 0.91 D Result diagrams: 03/04/20 10:39 03/04/20 10:39 Orders (Tests/Meds): ED MEDICATIONS Discontinued Medications Generic Name Dose Route Start Last Admin Trade Name Freq PRN Reason Stop Dose Admin Sodium Chloride 1,000 mls @ 999 mls/hr 03/04/20 11:15 03/04/20 11:29 Sod Chlor 0.9% 1000ml Bag IV 03/04/20 12:15 999 mls/hr .Q1H1M DILCIA Administration Sodium Chloride 1,000 mls @ 999 mls/hr 03/04/20 11:15 03/04/20 13:20 Sod Chlor 0.9% 1000ml Bag IV 03/04/20 12:15 999 mls/hr .Q1H1M DILCIA Administration Medical Decision Narrative: 64-year-old female with history of anxiety and hypertension presents with anxiety. She has been taking the Vistaril however this has not improved a whole lot. Of note her sodium has increased to 125 today from 121 a few days ago. She is going to get IV fluids and plan to discuss case with her primary care physician Joleen Jacinto in [place]. I discussed the case with Dr. Jacinto. We agreed to hold the hydrochlorothiazide and give the IV fluids here. She said that she can see her in the office at 1015 tomorrow morning and the patient is agreeable to this. Plan to discharge her with a dose of melatonin as well per her request for sleep help and I have counseled her on sleep hygiene. Discharge home with return precautions General Adult HPI - General Chief complaint: Anxiety Stated complaint: can't sleep hot flashes no temp Time Seen by Provider: 03/04/20 09:15 Mode of Arrival: Ambulatory Limitations: No Limitations Description of Symptoms (Recalled from ER Triage Doc. by RN): Advises she has anxiety and last night
--- NOTE | 2020-03-04 11:21 | PC.NURSE ---
Dr Hernadez spoke with Dr Jacinto in [facility].
[2020-03-04 11:33] LABS: Thyroid Stimulating Hormone 0.91 uIU/mL (0.465-4.68)
[2020-03-04 14:11] VITALS: BP 175/82; PULSE 84; RESP 17; TEMP 37; O2SAT 96
== END 2020-03-04 14:13 | disposition home or self-care (01) ==
PROVIDERS: Emergency Provider Emergency Medicine; PCP Family Medicine
DX: E87.1 Hypo-osmolality and hyponatremia (principal); F41.9 Anxiety disorder, unspecified; G47.10 Hypersomnia, unspecified; I10 Essential (primary) hypertension; E04.1 Nontoxic single thyroid nodule; Z87.891 Personal history of nicotine dependence; Z79.899 Other long term (current) drug therapy
CPT/HCPCS: 80053; 83735; 84443; 85025; 96365; 96366; 99282

== ENCOUNTER → 2020-09-24 14:43 | Outpatient (POV) | payer MEDICARE, BC, SELFPAY | PROVIDERS: Visit Provider Dermatology | DX: Z00.00 Encounter for general adult medical examination without abnormal findings (principal) ==

== ENCOUNTER → 2021-03-10 15:24 | Outpatient (CLI) | payer BC, MEDICARE, SELFPAY | PROVIDERS: Visit Provider Nurse Practitioner | DX: Z20.822 Contact with and (suspected) exposure to COVID-19 (principal) | CPT/HCPCS: C9803; U0003; U0005 ==

== ENCOUNTER 2022-06-30 07:40 | Day surgery (SDC) | payer BC, MEDICARE, SELFPAY ==
[2022-06-24 16:53] VITALS: BMI 21.9
[2022-06-30 08:08] VITALS: BP 156/54; PULSE 79; RESP 18; TEMP 36.3; O2SAT 98
[2022-06-30 09:02] VITALS: BP 155/69; PULSE 86; RESP 16; O2SAT 96
[2022-06-30 09:07] VITALS: BP 135/67; PULSE 87; RESP 16; O2SAT 95
[2022-06-30 09:12] VITALS: BP 148/77; PULSE 95; RESP 16; O2SAT 94
[2022-06-30 09:17] VITALS: BP 163/78; PULSE 100; RESP 16; O2SAT 94
== END 2022-06-30 09:35 | disposition home or self-care (01) ==
PROVIDERS: PCP Family Medicine; Visit Provider Ophthalmology
PROC: (CPT 66984; principal; 2022-06-30 09:30)
DX: H25.813 Combined forms of age-related cataract, bilateral (principal)
CPT/HCPCS: 66984; V2632

== ENCOUNTER 2022-07-14 07:38 | Day surgery (SDC) | payer BC, MEDICARE, SELFPAY ==
[2022-07-10 11:19] VITALS: BMI 21.9
[2022-07-14 08:15] VITALS: BP 178/78; PULSE 76; RESP 17; TEMP 36.8; O2SAT 96
[2022-07-14 09:08] VITALS: BP 176/84; PULSE 87; RESP 16; O2SAT 97
[2022-07-14 09:13] VITALS: BP 164/79; PULSE 87; RESP 16; O2SAT 97
[2022-07-14 09:18] VITALS: BP 156/87; PULSE 83; RESP 16; O2SAT 97
[2022-07-14 09:23] VITALS: BP 137/65; PULSE 71; RESP 17; TEMP 36.1; O2SAT 99
[2022-07-14 09:35] VITALS: BP 137/65; PULSE 71; RESP 17; TEMP 36.1; O2SAT 99
== END 2022-07-14 09:35 | disposition home or self-care (01) ==
PROVIDERS: PCP Family Medicine; Visit Provider Ophthalmology
PROC: (CPT 66984; principal; 2022-07-14 09:30)
DX: H26.9 Unspecified cataract (principal)
CPT/HCPCS: 66984; V2632

== ENCOUNTER 2023-01-07 18:10 | Emergency (ER) | payer BC, MEDICARE, SELFPAY ==
[2023-01-07] VITALS (10 sets, daily range): BP systolic 136–178; BP diastolic 66–87; PULSE 96–120; RESP 13–26; TEMP 36.9–37.1; O2SAT 95–98; BMI 21.9
--- NOTE | 2023-01-07 18:09 | ECG_ITS ---
APPROVED REPORT Exam: Resting ECG HR:119 bpm ECG Measurements Heart Rate 119 AXES VA 124 P 78 QRSd 89 QRS 15 QT 288 T 73 QTc 359 Conclusion SINUS TACHYCARDIA ABNORMAL RHYTHM ECG UNCONFIRMED REPORT Electronically signed by : Marky Solis MD 01/08/2023 16:10:10
--- NOTE | 2023-01-07 18:18 | XR_ITS ---
PROCEDURE INFORMATION: Exam: XR Chest Exam date and time: 01/07/2023 6:15 PM Age: 67 years old Clinical indication: Chest wall pain; Additional info: Cp. Copd x few years TECHNIQUE: Imaging protocol: Radiologic exam of the chest. Views: 2 views. COMPARISON: CR XR CHEST 2V 10/04/2018 12:22 PM FINDINGS: Lungs: There is coarsening of the bronchovascular markings. Pleural spaces: No evidence of pleural effusion, pneumothorax, or pleural thickening in the visualized pleural spaces. Heart/Mediastinum: Stable cardiac and mediastinal contours. Vasculature: There are calcifications of the aortic arch. Bones/joints: There is diffuse osseous demineralization. There are degenerative changes of the thoracic spine. Gastrointestinal tract: There is mild gaseous distention of partially visualized bowel loops. Impression: No dense parenchymal consolidation, pleural effusion, or pneumothorax. IMPRESSION:
[2023-01-07 18:27] LABS: Basophils # 0.1 K/mm3 (0-0.2); Basophils % 0.5 % (0.1-2.0); Eosinophils # 0.3 K/mm3 (0.0-0.4); Eosinophils % 3.1 % (0.1-12.0); Hematocrit 41.2 % (37.0-47.0); Hemoglobin 13.8 g/dL (12.2-16.2); Lymphocytes # 2.5 K/mm3 (0.7-4.5); Lymphocytes % 22.9 % (10-50); Mean Corpuscular HGB Conc 33.4 g/dL (31.8-35.4); Mean Corpuscular Hemoglobin 31.5 pg (27.0-31.2); Mean Corpuscular Volume 94.3 fl (81-99); Mean Platelet Volume 8.7 fl (7.4-10.4); Monocytes # 0.7 K/mm3 (0.1-1.0); Monocytes % 6.3 % (1.7-9.3); Neutrophils # 7.3 K/mm3 (1.8-7.8); Neutrophils % 67.3 % (37.0-80.0); Platelet Count 174 K/mm3 (142-424); Red Blood Count 4.37 M/mm3 (4.20-5.40); Red Cell Distribution Width 13.4 % (11.5-17.5); White Blood Count 10.8 K/mm3 (4.8-10.8)
[2023-01-07 18:31] LABS: Chloride 99 mmol/L (98-107); Potassium 3.8 mmoL/L (3.5-5.1); Sodium 139 mmol/L (136-145)
[2023-01-07 18:33] LABS: Alanine Aminotransferase 29 U/L (12-78); Alkaline Phosphatase 64 U/L (38-126); Aspartate Amino Transferase 39 U/L (14-36); Bilirubin,Total 1.4 mg/dl (0.2-1.3); Blood Urea Nitrogen 19 mg/dl (7-17); Creatinine Clearance Estimated 46 mL/min (50-200); Estimated Glomerular Filt Rate 83 ml/min (>60); GFR (African American) 101 ML/MIN (>60)
[2023-01-07 18:34] LABS: Albumin Level 4.8 g/dl (3.5-5.0); Albumin/Globulin Ratio 1.4 (1.1-1.8); Anion Gap 10.8 mEq/L (5-15); Calcium 9.4 mg/dl (8.4-10.2); Carbon Dioxide 33 mmol/L (22.0-30.0); Globulin 3.5 g/dL (1.3-3.2); Glucose 175 mg/dl (74-100); Total Protein,Serum 8.3 g/dl (6.3-8.2)
--- NOTE | 2023-01-07 18:41 | HMH.EDGENADL ---
Discharge Plan Disposition Patient Disposition: Home, Self-Care Prescriptions Prescriptions: New prednisone 50 mg tablet 50 mg PO DAILY 5 Days Qty: 5 0RF azithromycin 250 mg tablet 250 mg PO DAILY 5 Days Qty: 5 0RF cefdinir 300 mg capsule 300 mg PO BID 5 Days Qty: 10 0RF No Action melatonin 3 MG tablet 3 mg PO ONCE PRN (Reason: Insomnia) 7 Days Qty: 7 0RF Rx Instructions: Take the medicine 3 hours before the time that you would normally go to bed. Trelegy Ellipta 100-62.5-25 mcg Blister With Device 1 inh INHALATION DAILY losartan 100 MG tablet 100 mg PO DAILY quetiapine 25 mg tablet 25 mg PO BID Referrals Follow up/Referrals: Provider,Referral, MD [Primary Care Provider] - See instructions Activity Restrictions/Add. Instructions Additional Instructions/Restrictions: At this time is felt you are safe to be discharged home. If new or worsening symptoms please do not hesitate to return the emergency department. Please take your medication as prescribed and follow-up with Dr. Grimm tomorrow morning at his clinic at 10 AM. Let clinic staff know you are in the emergency department last night and he wanted you seen at 10 AM. Clinical Impressions Clinical Impression: CAP (community acquired pneumonia), Chest pain Discharge ED Provider: Isidoro Hirsch General Adult HPI General Chief complaint: Chest Pain Stated complaint: chest pain Time Seen by Provider: 01/07/23 18:15 Mode of Arrival: Family Vehicle Source of Information: Patient Limitations: No Limitations Description of Symptoms (Recalled from ER Triage Doc. by RN): 67 yo female presents with cc of left anterior chest pain that began about an hour prior to arrival. Patient states she was standing at the [employer] supper when she began experiencing 8/10 pain, increased dyspnea (baseline is a requirement of 2lpm o2 with copd). Patient denies radiation. No visible lesions to site. Denies n/v/d, decrease in urinary output. Denies headache, denies heartburn. No pedal edema present. Patient is alert and oriented x3. Slightly tachy on the monitor @ 116 History of Present Illness HPI narrative: Patient is a 67-year-old female who presents emergency department for evaluation of chest pain. Onset was acute, occurring over this afternoon, severe in intensity. Patient has history of COPD on 2 L nasal cannula. Chest pain does not radiate to the back, is persistent. Denies other symptoms other than shortness of breath. No sick contacts. No other acute complaints at this time. Related Data Home Medications Medication Instructions Recorded Confirmed losartan 100 mg tablet 100 mg PO DAILY htn 02/29/20 01/07/23 fluticasone fur. 100 mcg-umeclid 1 inh inhalation DAILY COPD 06/24/22 01/07/23 62.5 mcg-vilant 25 mcg inhalat.powder (Trelegy Ellipta) quetiapine 25 mg tablet 25 mg PO BID Depression 07/10/22 01/07/23 Previous Rx's Medication Instructions Recorded melatonin 3 mg tablet 3 mg PO ONCE PRN Insomnia 7 days 03/04/20 #7 tabs azithromycin 250 mg tablet 250 mg PO DAILY 5 days #5 tabs 01/07/23 cefdinir 300 mg capsule 300 mg PO BID 5 days #10 caps 01/07/23 prednisone 50 mg tablet 50 mg PO DAILY 5 days #5 tabs 01/07/23 Allergies Allergy/AdvReac Type Severity Reaction Status Date / Time No Known Allergies Allergy Verified 07/14/22 08:13 [facility] Disclaimer: The information contained in this section may have been updated after the patient was seen, as this information can be updated by other users. Medical History (Updated 01/07/23 @ 22:37 by Isidoro Hirsch MD) History of COPD History of hypertension Surgical History History of carpal tunnel surgery of right wrist History of cholecystectomy History of colonoscopy Family History Other Family history of [place] (myocardial infarction) [place]
--- NOTE | 2023-01-07 18:42 | CT_ITS ---
PROCEDURE INFORMATION: Exam: CTA Chest With Contrast Exam date and time: 01/07/2023 6:58 PM Age: 67 years old Clinical indication: Tachypnea; Chest wall pain; Additional info: Cp, tachy 125 TECHNIQUE: Imaging protocol: Computed tomographic angiography of the chest with contrast. Exam focused on the arteries. 3D rendering (Not supervised by radiologist): MIP and/or 3D reconstructed images were created by the technologist. Radiation optimization: All CT scans at this facility use at least one of these dose optimization techniques: automated exposure control; mA and/or kV adjustment per patient size (includes targeted exams where dose is matched to clinical indication); or iterative reconstruction. Contrast material: ISOVUE; Contrast volume: 70 ml; Contrast route: INTRAVENOUS (IV); REPORTING DATA: Count of CT and Cardiac NM exams in prior 12 months: This patient has received 0 known CTs and 0 known cardiac nuclear medicine studies in the 12 months prior to the current study. COMPARISON: CR XR CHEST 2V 01/07/2023 6:15 PM FINDINGS: Pulmonary arteries: Normal. No pulmonary emboli. Aorta: Mild thoracic aortic atherosclerotic disease without aneurysm. Thyroid: 1.4 cm low-density right thyroid nodule. Lungs: Mild emphysema. Posterior left upper lobe calcified granuloma. 1.2 cm focus of consolidation in the anterior left upper lobe. Mild lingular and bilateral lower lobe atelectasis. Pleural spaces: Unremarkable. No pneumothorax. No pleural effusion. Heart: Unremarkable. No cardiomegaly. No pericardial effusion. Lymph nodes: Unremarkable. No enlarged lymph nodes. Bones/joints: Mild thoracic spine degenerative change. Soft tissues: Unremarkable. IMPRESSION: 1. Small focus of consolidation in the anterior left upper lobe is suspicious for pneumonia. Recommend follow-up chest CT after appropriate treatment to ensure resolution and exclude neoplastic disease. 2. Mild emphysema. 3. 1.4 cm low-density right thyroid nodule. COMMENTS: 1. Consistent with the [employer]'s Incidental Findings Committee white paper (J Am Mikala Radiol 2015): In patients aged 35 years and older with an incidental thyroid nodule equal to or greater than 1.[address], MRI or extrathyroidal US, further evaluation with dedicated thyroid US is recommended for patients with normal life expectancy and without comorbidities. For smaller nodules without suspicious features, no further evaluation or follow up is recommended. 2. In the absence of a history or active diagnosis of lung cancer, it is recommended that this patient with emphysema be evaluated for enrollment in a low dose CT lung cancer screening program.
[2023-01-07 18:44] LABS: NT Pro Brain Natriuretic Pep. 85.9 pg/mL (0-125)
[2023-01-07 18:48] LABS: Troponin I < 0.01 ng/ml (0.00-0.034)
[2023-01-07 18:51] LABS: T4 (Thyroxine) 8.2 ug/dl (5.53-11.0)
[2023-01-07 19:05] LABS: Thyroid Stimulating Hormone 0.63 uIU/mL (0.465-4.68)
[2023-01-07 22:02] LABS: Troponin I < 0.01 ng/ml (0.00-0.034)
== END 2023-01-07 23:09 | disposition home or self-care (01) ==
PROVIDERS: Emergency Provider Emergency Medicine
DX: R07.89 Other chest pain (principal); J18.9 Pneumonia, unspecified organism; R00.0 Tachycardia, unspecified; R06.02 Shortness of breath; J44.9 Chronic obstructive pulmonary disease, unspecified; I10 Essential (primary) hypertension; Z87.891 Personal history of nicotine dependence
CPT/HCPCS: 71046; 71275; 80053; 83880; 84436; 84443; 84484; 85025; 87040; 93005; 96365; 96367; 96375; 99285; J0456; J0696; J2405; Q9967

== ENCOUNTER 2023-01-11 07:41 | Day surgery (SDC) | payer BC, SELFPAY ==
[2023-01-11] VITALS (11 sets, daily range): BP systolic 99–167; BP diastolic 53–88; PULSE 56–77; RESP 16–20; O2SAT 97–100; BMI 23.3
--- NOTE | 2023-01-11 07:07 | IR_ITS ---
APPROVED REPORT Patient Location: Outpatient PROCEDURES Left heart catheterization Left ventriculogram Selective coronary angiogram INDICATION Angina pectoris, Abnormal EKG, Informed consent was obtained prior to the procedure. COMPLICATIONS None Estimated Blood Loss: Less than10 mls TECHNIQUE One percent lidocaine used to anesthetize the right anterior aspect of the wrist. The right radial artery was accessed via the Seldinger technique. A 6 German sheath was placed in the right radial artery. 2.5 mg of Verapamil, 800 mcg of nitroglycerin, 1mg Lidocaine and 5000 U Heparin were given through the arterial sheath. The papa catheter was also used to perform left heart catheterization, left ventriculogram and selective coronary angiogram. At the end of the procedure the sheath was removed good hemostasis was achieved using Traclet band, patient was transferred to the postop holding area in stable condition. ANGIOGRAPHIC RESULTS The left main artery Normal The left anterior descending artery Has proximal 20 to 30% stenoses with mid vessel 10 to 20% stenoses The circumflex artery Nondominant with 10% diffuse luminal irregularities The right coronary artery Dominant with diffuse 10% luminal irregularities The GLEASNO ventriculogram reveals Mild left ventricular dilatation mild global hypokinesis estimate ejection fraction 45% The left ventricular end-diastolic pressure 25 mmHg IMPRESSION Nonflow limiting coronary disease Mild left ventricular dilatation with reduced ejection fraction Elevated LVEDP PLAN 1. Medical management 2. Consider cardiac MRI 3. Risk factor modification Electronically signed by : Eyad Grimm MD 01/11/2023 09:49:09
[2023-01-11 08:19] LABS: Basophils # 0.1 K/mm3 (0-0.2); Basophils % 0.8 % (0.1-2.0); Eosinophils # 0.3 K/mm3 (0.0-0.4); Eosinophils % 2.9 % (0.1-12.0); Hematocrit 42.6 % (37.0-47.0); Hemoglobin 13.5 g/dL (12.2-16.2); Lymphocytes # 3.9 K/mm3 (0.7-4.5); Lymphocytes % 38.8 % (10-50); Mean Corpuscular HGB Conc 31.6 g/dL (31.8-35.4); Mean Corpuscular Volume 94.9 fl (81-99); Mean Platelet Volume 8.4 fl (7.4-10.4); Monocytes # 0.7 K/mm3 (0.1-1.0); Monocytes % 6.8 % (1.7-9.3); Neutrophils # 5.1 K/mm3 (1.8-7.8); Neutrophils % 50.6 % (37.0-80.0); Platelet Count 204 K/mm3 (142-424); Red Blood Count 4.48 M/mm3 (4.20-5.40); Red Cell Distribution Width 13.5 % (11.5-17.5); White Blood Count 10.1 K/mm3 (4.8-10.8)
[2023-01-11 08:32] LABS: Anion Gap 12.9 mEq/L (5-15); Blood Urea Nitrogen 22 mg/dl (7-17); Calcium 9.7 mg/dl (8.4-10.2); Carbon Dioxide 30 mmol/L (22.0-30.0); Chloride 98 mmol/L (98-107); Creatinine Clearance Estimated 49 mL/min (50-200); Estimated Glomerular Filt Rate 83 ml/min (>60); GFR (African American) 101 ML/MIN (>60); Glucose 103 mg/dl (74-100); Potassium 3.9 mmoL/L (3.5-5.1); Sodium 137 mmol/L (136-145)
== END 2023-01-11 12:54 | disposition home or self-care (01) ==
PROVIDERS: PCP Internal Medicine; Visit Provider Internal Medicine
DX: I25.118 Atherosclerotic heart disease of native coronary artery with other forms of angina pectoris (principal); R94.31 Abnormal electrocardiogram [ECG] [EKG]; Z79.899 Other long term (current) drug therapy; Z87.891 Personal history of nicotine dependence; Z99.81 Dependence on supplemental oxygen; J44.9 Chronic obstructive pulmonary disease, unspecified
CPT/HCPCS: 80048; 85025; 93458; 99152; C1725; C1769; J1644; Q9967

== ENCOUNTER → 2023-01-18 09:15 | Outpatient (CLI) | payer BC, SELFPAY ==
--- NOTE | 2023-01-18 09:24 | XR_ITS ---
FINAL REPORT CLINICAL HISTORY: dyspnea COPD cough with yellow discharge soa former smoker of 20 years, quit 17 yrs ago FINDINGS: There is no evidence of effusion or other pleural disease. The mediastinum has a normal appearance. The cardiac silhouette is unremarkable. IMPRESSION: Unremarkable chest exam. Reviewed, Interpreted and Dictated by Geronimo Alvarez MD Transcribed by Tiffany Brown Authenticated and [facility]
== END ==
PROVIDERS: PCP Family Medicine; Visit Provider Nurse Practitioner
DX: I25.10 Atherosclerotic heart disease of native coronary artery without angina pectoris (principal); R06.00 Dyspnea, unspecified; R94.31 Abnormal electrocardiogram [ECG] [EKG]; Z99.81 Dependence on supplemental oxygen; Z87.891 Personal history of nicotine dependence
CPT/HCPCS: 71046

== ENCOUNTER → 2023-01-28 10:47 | Outpatient (CLI) | payer BC, SELFPAY ==
--- NOTE | 2023-01-28 10:48 | CA_ITS ---
APPROVED REPORT EXAM: Comprehensive 2D, Doppler, and color-flow Echocardiogram Package Lift Operator: Renate Patterson, RCS, RVS Ht: 5 ft 2 in Wt: 127lbs BSA: 1.58 BP: 181/64 mmHg Indications: COPD, on home O2, CAD, ABN EKG, Previous EF 45%-cath, ex-smoker 2D Dimensions IVSd 0.80 cm F: 0.6-1.0 LVEF (Visual) 60.10 % PWd 0.79 cm F: 0.6 - 1.0 LVEF (Keller's) 56.00 % F: 54 - 74 LVDd 4.10 cm F: 3.9 - 5.3 LV Volume 72.90 mL F: 46 - 106 LVDs 2.80 cm F: 2.2 - 3.5 LV Volume Index 46.1 mL/m2 F: 29 - 61 Aortic Root 2.77 cm F: 2.7 - 3.3 LA Volume 33.90 mL Left Atrium 2.64 cm F: 2.7 - 3.8 LA Volume Index 21.46 mL/m2 (M/F) 16-34 RVID Base (AP4) 3.21 cm (M/F) 2.5-4.1 EF AP4 66.10 % LVOT 1.72 cm (M/F) 1.5-2.5 EF AP2 51.4 % EF BP 56.0 % GL Strain -19.5 % M-Mode Dimensions RVDd 2.86 cm (0.9-2.6) LVDd 4.10 cm (3.5-5.7) Ao Diam 2.62 cm (2.0-3.7) LVDs 2.96 cm (3.5-5.7) IVSd 0.84 cm (0.6-1.1) PWd 1.01 cm (0.6-1.1) EF (Teich) 60.70% EPSs 0.61 cm FS 32.10% EDV (Teich) 86.30 mL TAPSE 2.40 (<1.7) ESV (Teich) 33.90 mL LV Diastology E Decel Time 157 (160-240 msec) E/A Ratio 1.3 MED E' 13.0 (>= 7 cm/sec) MED A' 9.30 cm/s E'/MED E' Ratio 5.62 (<= 14) LAT E' 13.9 (>= 10 cm/sec) LAT A' 9.10 cm/s E/LAT E' Ratio 5.26 (<= 14) Aortic Valve LVOT Max 83.0 (70-110 cm/s) JAMIL Index 1.03 cm2/m2 LVOT VTI 18.04 cm AoV Peak Chris. 119.0 (50-130 cm/s) AO Mean GR. 2.80 (<5 mmHg) AO VTI 25.7 (18-25 cm) JAMIL (VTI) 1.63 (2.5-4.5 cm2) Mitral Valve MV E Max Chris. 73.0 (40-130 cm/s) MV A Velocity 56.0 (40-130 cm/s) E/A Ratio 1.30 MV Decel. Time 157 (160-240 ms) MV Mean Gr. 0.80 (<2mmHg) Pulmonary Valve NC End VMAX 263.0 cm/s Left Ventricle The left ventricle is normal size. The left ventricular systolic function is low normal. There is normal left ventricular wall thickness. There is normal LV segmental wall motion. The left ventricular diastolic function is normal. LVEF is 50%. Right Ventricle The right ventricle is normal size. The right ventricular systolic function is normal. Atria The left atrium size is normal. The right atrium size is normal. There is no Doppler evidence of interatrial shunt. Aortic Valve The aortic valve is normal in structure. There is no aortic valvular stenosis. No aortic regurgitation is present. Mitral Valve The mitral valve is normal in structure. No evidence of mitral valve stenosis. Mild mitral regurgitation. Tricuspid Valve The tricuspid valve leaflets are thin and pliable. Mild tricuspid regurgitation. The TR jet is eccentric. TR Doppler could not be obtained to evaluate RVSP due to eccentric jet. Pulmonic Valve The pulmonary valve is normal in structure. Trace pulmonic regurgitation. Great Vessels The aortic root is normal in size. The ascending aorta is normal in size. IVC is normal in size and collapses >50% with inspiration. Pericardium There is no pericardial effusion. Other Information Study Quality: Technically Difficult Conclusion Technically difficult study due to poor acoustic windows and lung impedance. Low normal LV systolic function (LVEF 50%). Mild MR, mild TR. Electronically signed by : Elo Rabago MD 01/31/2023 20:43:58
== END ==
PROVIDERS: PCP Family Medicine; Visit Provider Nurse Practitioner
DX: R07.9 Chest pain, unspecified (principal); R06.00 Dyspnea, unspecified
CPT/HCPCS: 93306

== ENCOUNTER 2023-03-03 09:13 | Outpatient (CLI) | payer BC, SELFPAY ==
--- NOTE | 2023-03-03 09:32 | MR_ITS ---
APPROVED REPORT Electroless Plater: CLINICAL INDICATION Evaluation for cardiomyopathy TECHNIQUE Image Acquisition: Cardiac magnetic resonance (CMR) was performed on Siemens Espree MRI 1.5T scanner. Software platform sequences were performed using the Siemens Conject MR B19 platform. A set of three-plane, low-resolution, large [id number] localizers were initially acquired. Then axial, coronal, sagittal TrueFISP, as well as axial HASTE images, were obtained. These were followed by gated TrueFISP breathold cinematic sequences obtained in the short axis with 8 mm slices and 2 mm gaps, 2-chamber (vertical long axis), 3-chamber, 4-chamber (horizontal long axis). A bolus of contrast was injected intravenously with first-pass sequences obtained in the short axis and four-chamber planes. After approximately 10 minutes, a TI rocket assembly operator sequence was performed to determine the optimal TI time. Using the optimized TI time, delayed contrast enhancement segmented inversion???recovery TurboFLASH sequences were obtained in the short axis, 2-chamber, 3-chamber, and 4-chamber projections. 2D-velocity phase mapping was performed. Functional parameters were calculated by offline analysis on an independent workstation ([employer] Platform, [employer]). Contrast: ProHance??? (Gadoteridol) FINDINGS MORPHOLOGY AND FUNCTION Left ventricle: The left ventricle is normal in size. The indexed left ventricular end-diastolic volume (LVEDVi) is 68 ml/m2 (reference range 57-105 ml/m2 in males, 56-96 ml/m2 in females). There is mild reduction in left ventricular systolic function. There is normal left ventricular wall thickness. There is moderate hypokinesis of the mid to distal septal and anteroseptal LV adair, as well as the LV apex. LVEF is calculated at 48% (reference range 57-77%). Right ventricle: The right ventricle is normal in size. The indexed right ventricular end-diastolic volume (RVEDVi) is 61 ml/m2 (reference range 61-121 ml/m2 in males, 48-112 ml/m2 in females). There is mild reduction in right ventricular systolic function. RVEF is calculated at 41% (reference range 52-72% in males, 51-71% in females). Atria: The left atrium is normal in size. The maximum indexed left atrial volume is 27 ml/m2 (reference range 26-52 ml/m2 in males, 27-53 ml/m2 in females). The right atrium is normal in size. The maximum indexed right atrial volume is 18 ml/m2 (reference range 18-90 ml/m2). Aorta: The diameter of the aortic annulus is normal, measuring 22 mm (coronal view reference range 21-30 mm in males, 19-27 mm in females). The diameter of the aortic sinus is normal, measuring 26 mm (coronal view reference range 25-42 mm in males, 24-36 mm in females). The diameter of the sinotubular junction is normal, measuring 21 mm (coronal view reference range 18-32 mm in males, 18-28 mm in females). The diameters of the ascending and descending thoracic aorta are normal. Main pulmonary artery: The main pulmonary artery diameter is normal. Pericardium: The pericardial thickness is normal. The pericardial thickness measures 1.0 cm (normal < 4.0 cm). There is no pericardial effusion. VALVES The valvular morphologies in the visualized sequences appear normal. There is no significant valvular stenosis or regurgitation of the mitral, aortic, tricuspid, or pulmonic valve noted visually. Systolic anterior motion of the mitral valve is not visualized. Ratio of pulmonary to systemic flow, Qp:Qs ratio = 0.9 (normal < or = 1.2), demonstrating no evidence of hemodynamically significant shunt. TISSUE CHARACTERIZATION Resting Perfusion: There is resting hypoperfusion noted in the distal septal LV wall and the LV apex. Myocardial Fibrosis and/or edema: Normal gadolinium kinetics are present. No evidence of late gadolinium enhancement is noted, consistent with absence of myocardial scarring, infarction, or necrosis. T2-weighted imaging demonstrates no evidence of myocardial edema or inflammation. OTHER No other significant findings are noted. However, this exam is focused on the cardiac structure and function. IMPRESSION Normal LV size with mild reduction in LV systolic function. LVEDVi= 68 ml/m2 and LVEF= 48%. Moderate hypokinesis of the mid to distal septal and anteroseptal LV adair, as well as the LV apex. Normal RV size with mild reduction in RV systolic function. RVEDVi= 61 ml/m2 and RVEF= 41%. No atrial enlargement. No CMR evidence of myocardial scarring, infarction, or necrosis. No evidence of myocardial edema or inflammation. Resting hypoperfusion noted in the distal septal LV wall and the LV apex. Ratio of pulmonary to systemic flow, Qp:Qs ratio = 0.9 (normal < or = 1.2), demonstrating no evidence of hemodynamically significant shunt. This CMR demonstrates non-ischemic cardiomyopathy with mild reduction in biventricular systolic function. There is also evidence of regional wall motion abnormalities without significant coronary disease (as previously noted on prior LHC) and without evidence of myocardial scarring, infarction or fibrosis. The findings are of this non-ischemic cardiomyopathy is nonspecific, but the differential diagnosis includes stress cardiomyopathy or cardiac sarcoidosis. In contrast, myocarditis is less likely in this case in the setting of negative Briggs criteria on CMR. COMPARISON None CRITICAL RESULT None COMMUNICATION Per this written report The findings of this cardiac MR were reviewed, reported, and signed by Hu Rabago MD (Profile Stitching Machine Operator). Conclusion Electronically signed by : Elo Rabago MD 03/08/2023 02:40:08
[2023-03-03 10:02] LABS: Blood Urea Nitrogen 17 mg/dl (7-17); Estimated Glomerular Filt Rate 99 ml/min (>60); GFR (African American) 120 ML/MIN (>60)
[2023-03-03] MEDS: SODIUM CHLORIDE 0.9% 50ML BAG 20 ML IV (11:32)
[2023-03-03] MEDS: SODIUM CHLORIDE 0.9% 10ML SYR (RAD ONLY) 10 ML IV (11:32)
[2023-03-03] MEDS: GADOTERIDOL INJ 17ML SYRINGE 13 ML IV (11:32)
== END 2023-03-03 23:59 ==
PROVIDERS: PCP Family Medicine; Visit Provider Internal Medicine
DX: I25.10 Atherosclerotic heart disease of native coronary artery without angina pectoris (principal); I50.1 Left ventricular failure, unspecified; R94.31 Abnormal electrocardiogram [ECG] [EKG]; Z87.891 Personal history of nicotine dependence
CPT/HCPCS: 36415; 75561; 82565; 84520; A9576

== ENCOUNTER 2023-03-15 15:15 | Outpatient (CLI) | payer BC, SELFPAY ==
[2023-03-15 15:41] LABS: Basophils # 0.1 K/mm3 (0-0.2); Basophils % 0.7 % (0.1-2.0); Eosinophils # 0.3 K/mm3 (0.0-0.4); Eosinophils % 3.9 % (0.1-12.0); Hematocrit 42.3 % (37.0-47.0); Hemoglobin 13.6 g/dL (12.2-16.2); Lymphocytes # 1.7 K/mm3 (0.7-4.5); Lymphocytes % 21.2 % (10-50); Mean Corpuscular HGB Conc 32.3 g/dL (31.8-35.4); Mean Corpuscular Hemoglobin 30.7 pg (27.0-31.2); Mean Corpuscular Volume 95.3 fl (81-99); Mean Platelet Volume 8.3 fl (7.4-10.4); Monocytes # 0.6 K/mm3 (0.1-1.0); Neutrophils # 5.2 K/mm3 (1.8-7.8); Neutrophils % 66.2 % (37.0-80.0); Platelet Count 170 K/mm3 (142-424); Red Blood Count 4.44 M/mm3 (4.20-5.40); Red Cell Distribution Width 13.7 % (11.5-17.5); White Blood Count 7.8 K/mm3 (4.8-10.8)
[2023-03-15 16:28] LABS: Alanine Aminotransferase 23 U/L (12-78); Albumin Level 4.3 g/dl (3.5-5.0); Albumin/Globulin Ratio 1.5 (1.1-1.8); Alkaline Phosphatase 56 U/L (38-126); Anion Gap 10.2 mEq/L (5-15); Aspartate Amino Transferase 28 U/L (14-36); Bilirubin,Total 0.8 mg/dl (0.2-1.3); Blood Urea Nitrogen 17 mg/dl (7-17); Calcium 9.3 mg/dl (8.4-10.2); Carbon Dioxide 34 mmol/L (22.0-30.0); Chloride 99 mmol/L (98-107); Estimated Glomerular Filt Rate 83 ml/min (>60); GFR (African American) 101 ML/MIN (>60); Globulin 2.9 g/dL (1.3-3.2); Glucose 101 mg/dl (74-100); Iron 104 ug/dL (37-170); Potassium 4.2 mmoL/L (3.5-5.1); Sodium 139 mmol/L (136-145); Total Protein,Serum 7.2 g/dl (6.3-8.2)
[2023-03-15 16:45] LABS: Erythrocyte Sedimentation Rate 24 mm/hr (0-30)
[2023-03-15 19:08] LABS: Total Iron Binding Capacity 248 ug/dL (265-497)
[2023-03-17 09:11] LABS: Antinuclear Antibodies, IFA Positive
== END 2023-03-15 23:59 ==
LOC: LAB 15:16
PROVIDERS: PCP Family Medicine; Visit Provider Internal Medicine
DX: I11.9 Hypertensive heart disease without heart failure (principal); I25.10 Atherosclerotic heart disease of native coronary artery without angina pectoris; J44.9 Chronic obstructive pulmonary disease, unspecified; Z87.891 Personal history of nicotine dependence
CPT/HCPCS: 36415; 80053; 83540; 83550; 85025; 85651; 86038

== ENCOUNTER 2023-05-26 14:06 | Outpatient (CLI) | payer BC, SELFPAY ==
--- NOTE | 2023-05-26 14:11 | CA_ITS ---
APPROVED REPORT EXAM: Limited 2D Echocardiogram with contrast Ux Developer Designer: Ada Shoemaker RVT Ht: 5 ft 2 in Wt: 120lbs BSA: 1.54 BP: 151/68 mmHg Indications: EF CHECK,EF OF 48% ON MRI IN JAN 2023,CAD,CM,COPD,HOME O2,EX SMOKER Echo Enhancing Agent Indication: Endocardial border delineation Agent(s) / Amount(s) Used: Definity 2 cc M-Mode Dimensions RVDd 3.57 cm (0.9-2.6) LVDd 4.58 cm (3.5-5.7) LVDs 3.21 cm (3.5-5.7) IVSd 0.52 cm (0.6-1.1) PWd 0.52 cm (0.6-1.1) EF (Teich) 57.10% FS 29.90% EDV (Teich) 96.30 mL ESV (Teich) 41.30 mL Other Information Study Quality: Fair Conclusion This is a limited TTE to evaluate for LVEF. Limited windows were obtained. Ultrasound enhancing agent is also administered to better delineate the LV endocardial borders. The left ventricle is normal in size. There is normal LV wall thickness. No regional wall motion abnormalities are noted. LVEF is 55%. Compared to prior study from 01/2023 and compared to CMR, the LVEF now appears slightly improved and is in the normal range. Electronically signed by : Elo Rabago MD 05/27/2023 12:30:36
[2023-05-26] MEDS: DEFINITY US ECHO CONTRAST 2ML INJ 2 MG IV (14:48)
== END 2023-05-26 23:59 ==
PROVIDERS: PCP Family Medicine; Visit Provider Internal Medicine
DX: R06.09 Other forms of dyspnea (principal); I50.20 Unspecified systolic (congestive) heart failure
CPT/HCPCS: 93308; Q9957

== ENCOUNTER 2023-06-21 14:57 | Outpatient (CLI) | payer BC, SELFPAY ==
[2023-06-21 15:32] LABS: Basophils # 0.1 K/mm3 (0-0.2); Eosinophils # 0.4 K/mm3 (0.0-0.4); Eosinophils % 6.5 % (0.1-12.0); Hematocrit 43.4 % (37.0-47.0); Hemoglobin 13.3 g/dL (12.2-16.2); Lymphocytes # 1.4 K/mm3 (0.7-4.5); Lymphocytes % 24.5 % (10-50); Mean Corpuscular HGB Conc 30.7 g/dL (31.8-35.4); Mean Corpuscular Volume 97.7 fl (81-99); Mean Platelet Volume 8.5 fl (7.4-10.4); Monocytes # 0.6 K/mm3 (0.1-1.0); Monocytes % 10.5 % (1.7-9.3); Neutrophils # 3.3 K/mm3 (1.8-7.8); Neutrophils % 57.5 % (37.0-80.0); Platelet Count 231 K/mm3 (142-424); Red Blood Count 4.45 M/mm3 (4.20-5.40); Red Cell Distribution Width 13.6 % (11.5-17.5); White Blood Count 5.8 K/mm3 (4.8-10.8)
[2023-06-21 15:50] LABS: Alanine Aminotransferase 20 U/L (12-78); Albumin Level 4.5 g/dl (3.5-5.0); Alkaline Phosphatase 56 U/L (38-126); Anion Gap 7.5 mEq/L (5-15); Aspartate Amino Transferase 31 U/L (14-36); Bilirubin,Direct 0.1 mg/dl (0.0-0.4); Bilirubin,Indirect 0.8 mg/dL (0.0-0.9); Bilirubin,Total 0.9 mg/dl (0.2-1.3); Bilirubin,Unconjugated 0.8 mg/dL (0.0-1.1); Blood Urea Nitrogen 19 mg/dl (7-17); Carbon Dioxide 33 mmol/L (22.0-30.0); Chloride 102 mmol/L (98-107); Chol/HDL Ratio 2.7 (1-3.5); Cholesterol 183 mg/dl (140-200); Estimated Glomerular Filt Rate 83 ml/min (>60); GFR (African American) 101 ML/MIN (>60); Glucose 106 mg/dl (74-100); HDL Cholesterol 69 mg/dl (40-60); Magnesium 2.3 mg/dl (1.6-2.3); Potassium 4.5 mmoL/L (3.5-5.1); Sodium 138 mmol/L (136-145); Total Protein,Serum 7.2 g/dl (6.3-8.2); Triglycerides 120 mg/dl (30-150); VLDL Cholesterol 24 mg/dL (0-40)
[2023-06-21 16:08] LABS: Free T4 (Free Thyroxine) 1.01 ng/dl (0.78-2.19)
== END 2023-06-21 23:59 | disposition home or self-care (01) ==
LOC: LAB 14:58
PROVIDERS: PCP Family Medicine; Visit Provider Internal Medicine
DX: I11.0 Hypertensive heart disease with heart failure (principal); I25.10 Atherosclerotic heart disease of native coronary artery without angina pectoris; I50.20 Unspecified systolic (congestive) heart failure; J44.9 Chronic obstructive pulmonary disease, unspecified; R94.31 Abnormal electrocardiogram [ECG] [EKG]; Z87.891 Personal history of nicotine dependence
CPT/HCPCS: 36415; 80048; 80061; 80076; 83735; 84439; 84443; 85025

== ENCOUNTER 2023-07-09 09:46 | Outpatient (CLI) | payer BC, SELFPAY ==
[2023-07-09] MEDS: ALBUTEROL 0.083% 2.5 MG/3 ML NEB IH (12:39)
[2023-07-19 08:09] LABS: Alpha-1-Antitrypsin 163 mg/dL (101-187)
== END 2023-07-09 23:59 | disposition home or self-care (01) ==
PROVIDERS: PCP Family Medicine; Visit Provider Internal Medicine Pulmonary Disease
DX: J44.9 Chronic obstructive pulmonary disease, unspecified (principal); R06.09 Other forms of dyspnea; Z87.891 Personal history of nicotine dependence
CPT/HCPCS: 36415; 82103; 82104; 94060; 94618; 94726; 94729

== ENCOUNTER 2023-10-20 14:08 | Outpatient (CLI) | payer BC, SELFPAY ==
[2023-10-20 14:29] LABS: Basophils % 0.7 % (0.1-2.0); Eosinophils # 0.4 K/mm3 (0.0-0.4); Eosinophils % 7.2 % (0.1-12.0); Hemoglobin 13.2 g/dL (12.2-16.2); Lymphocytes # 1.8 K/mm3 (0.7-4.5); Lymphocytes % 33.3 % (10-50); Mean Corpuscular HGB Conc 30.8 g/dL (31.8-35.4); Mean Corpuscular Hemoglobin 29.5 pg (27.0-31.2); Mean Corpuscular Volume 95.8 fl (81-99); Mean Platelet Volume 8.8 fl (7.4-10.4); Monocytes # 0.4 K/mm3 (0.1-1.0); Monocytes % 7.7 % (1.7-9.3); Neutrophils # 2.7 K/mm3 (1.8-7.8); Neutrophils % 51.1 % (37.0-80.0); Platelet Count 174 K/mm3 (142-424); Red Blood Count 4.49 M/mm3 (4.20-5.40); White Blood Count 5.2 K/mm3 (4.8-10.8)
[2023-10-20 15:09] LABS: Alanine Aminotransferase 21 U/L (12-78); Albumin Level 4.2 g/dl (3.5-5.0); Alkaline Phosphatase 50 U/L (38-126); Anion Gap 8.3 mEq/L (5-15); Aspartate Amino Transferase 29 U/L (14-36); Bilirubin,Indirect 0.9 mg/dL (0.0-0.9); Bilirubin,Total 0.9 mg/dl (0.2-1.3); Blood Urea Nitrogen 20 mg/dl (7-17); Calcium 9.8 mg/dl (8.4-10.2); Carbon Dioxide 31 mmol/L (22.0-30.0); Chloride 104 mmol/L (98-107); Chol/HDL Ratio 3.1 (1-3.5); Cholesterol 193 mg/dl (140-200); Estimated Glomerular Filt Rate 83 ml/min (>60); GFR (African American) 101 ML/MIN (>60); Glucose 98 mg/dl (74-100); HDL Cholesterol 62 mg/dl (40-60); Magnesium 2.2 mg/dl (1.6-2.3); Potassium 4.3 mmoL/L (3.5-5.1); Sodium 139 mmol/L (136-145); Total Protein,Serum 7.3 g/dl (6.3-8.2); Triglycerides 119 mg/dl (30-150); VLDL Cholesterol 24 mg/dL (0-40)
[2023-10-20 15:20] LABS: Direct LDL Cholesterol 81.18 mg/dL (100-129)
[2023-10-20 15:26] LABS: Free T4 (Free Thyroxine) 1.13 ng/dl (0.78-2.19)
[2023-10-20 15:40] LABS: Thyroid Stimulating Hormone 0.95 uIU/mL (0.465-4.68)
== END 2023-10-20 23:59 | disposition home or self-care (01) ==
LOC: LAB 14:10
PROVIDERS: PCP Family Medicine; Visit Provider Internal Medicine
DX: I50.20 Unspecified systolic (congestive) heart failure (principal); J44.9 Chronic obstructive pulmonary disease, unspecified; I51.9 Heart disease, unspecified; I25.10 Atherosclerotic heart disease of native coronary artery without angina pectoris; Z99.81 Dependence on supplemental oxygen; R94.31 Abnormal electrocardiogram [ECG] [EKG]; R06.00 Dyspnea, unspecified; I10 Essential (primary) hypertension
CPT/HCPCS: 36415; 80048; 80061; 80076; 83735; 84439; 84443; 85025

== ENCOUNTER 2024-03-30 16:03 | Outpatient (CLI) | payer BC, SELFPAY ==
--- NOTE | 2024-03-30 16:07 | XR_ITS ---
FINAL REPORT CLINICAL HISTORY: SOB COMPARISON: 01/18/2023 FINDINGS: There are underlying emphysematous changes. No acute pulmonary density is present. No significant pleural effusion. There is no pneumothorax. The heart is normal in size. The mediastinum is unremarkable. IMPRESSION: Emphysema without acute process. Reviewed, Interpreted and Dictated by Geronimo Alvarez MD Transcribed by Tiffany Brown Authenticated and . [facility]
== END 2024-03-30 23:59 | disposition home or self-care (01) ==
LOC: RAD 16:04
PROVIDERS: PCP Family Medicine; Visit Provider Internal Medicine Pulmonary Disease
DX: R06.02 Shortness of breath (principal)
CPT/HCPCS: 71046

== ENCOUNTER 2024-05-01 14:13 | Outpatient (CLI) | payer BC, SELFPAY ==
--- NOTE | 2024-05-01 14:17 | CA_ITS ---
APPROVED REPORT EXAM: Comprehensive 2D, Doppler, and color-flow Echocardiogram with contrast Multi Mission Helicopter Aircrewman: Valarie Souza CRT Ht: 5 ft 2 in Wt: 113lbs BSA: 1.50 BP: 129/48 mmHg Indications: COPD, Shortness of Breath, Dyspnea, CAD, Hypertension/HDD, home o2, CHF, EF 55% 06/15 Echo Enhancing Agent Indication: Endocardial border delineation Agent(s) / Amount(s) Used: Definity 2 cc 2D Dimensions LA Volume 28.30 mL LA Volume Index 18.87 mL/m2 (M/F) 16-34 M-Mode Dimensions RVDd 3.04 cm (0.9-2.6) LA Diam 3.13 cm (1.9-4.0) LVDd 4.42 cm (3.5-5.7) LVDs 3.28 cm (3.5-5.7) IVSd 0.94 cm (0.6-1.1) PWd 0.67 cm (0.6-1.1) EF (Teich) 50.90% FS 25.80% EDV (Teich) 88.60 mL TAPSE 2.06 (<1.7) ESV (Teich) 43.50 mL LV Diastology E Decel Time 153 (160-240 msec) E/A Ratio 1.2 MED A' 12.40 cm/s LAT A' 11.10 cm/s Aortic Valve AO Peak GR. 4.40 mmHg Mitral Valve MV E Max Chris. 77.0 (40-130 cm/s) MV A Velocity 66.0 (40-130 cm/s) E/A Ratio 1.16 MV PHT 45.0 ms Pulmonary Valve PV Peak Velocity 76.0 (50-150 cm/s) Tricuspid Valve TR P. Velocity 187.00 cm/s RAP Estimate 10.00 mmHg RVSP 24.00 mmHg Left Ventricle The left ventricle is normal size. The left ventricular systolic function is mildly reduced. There is increased LV wall thickness. There is mild global hypokinesis present. The septum is asynchronous. Diastolic function is indeterminate. No left ventricle thrombus noted on this study. LVEF is 45%. Right Ventricle Right ventricle is mildly dilated. Right ventricle is mildly hypokinetic. Atria The left atrium size is normal. The right atrium size is normal. There is no Doppler evidence of interatrial shunt. Aortic Valve The aortic valve is mildly thickened. There is no aortic valvular stenosis. No aortic regurgitation is present. Mitral Valve The mitral valve is normal in structure. No evidence of mitral valve stenosis. Trace mitral regurgitation. Tricuspid Valve Tricuspid valve is grossly normal in structure and function. Trace tricuspid regurgitation. There is insufficient TR jet to estimate RVSP. Trace pulmonic regurgitation. Pulmonic Valve The pulmonary valve is normal in structure. Great Vessels The aortic root is normal in size. IVC is normal in size and collapses >50% with inspiration. Pericardium There is no pericardial effusion. Other Information Study Quality: Technically Difficult Conclusion Technically difficult study due to poor acoustic windows. Mildly reduced LV systolic function (LVEF 45%). Mild RV dilation with mild reduction in RV function. No significant valvular stenosis or regurgitation. Compared to prior study from 05/2023, the LVEF is now slightly reduced. Electronically signed by : Elo Rabago MD 05/08/2024 12:32:19
[2024-05-01] MEDS: DEFINITY US ECHO CONTRAST 2ML INJ 2 MG IV (15:37)
== END 2024-05-01 23:59 | disposition home or self-care (01) ==
LOC: RT 14:14
PROVIDERS: PCP Family Medicine; Visit Provider Internal Medicine
DX: R06.00 Dyspnea, unspecified (principal); I50.20 Unspecified systolic (congestive) heart failure
CPT/HCPCS: 93306; Q9957

== ENCOUNTER 2024-05-11 13:25 | Outpatient (CLI) | payer BC, SELFPAY ==
[2024-05-11 14:29] LABS: Basophils # 0.1 K/mm3 (0-0.2); Basophils % 1.2 % (0.1-2.0); Eosinophils # 0.3 K/mm3 (0.0-0.4); Eosinophils % 4.5 % (0.1-12.0); Hematocrit 42.7 % (37.0-47.0); Hemoglobin 13.5 g/dL (12.2-16.2); Lymphocytes # 1.7 K/mm3 (0.7-4.5); Lymphocytes % 28.6 % (10-50); Mean Corpuscular HGB Conc 31.6 g/dL (31.8-35.4); Mean Corpuscular Hemoglobin 29.7 pg (27.0-31.2); Mean Corpuscular Volume 93.8 fl (81-99); Mean Platelet Volume 10.2 fl (7.4-10.4); Monocytes # 0.6 K/mm3 (0.1-1.0); Monocytes % 10.2 % (1.7-9.3); Neutrophils # 3.2 K/mm3 (1.8-7.8); Neutrophils % 54.8 % (37.0-80.0); Platelet Count 198 K/mm3 (142-424); Red Blood Count 4.55 M/mm3 (4.20-5.40); Red Cell Distribution Width 13.6 % (11.5-17.5); White Blood Count 5.8 K/mm3 (4.8-10.8)
[2024-05-11 14:44] LABS: Albumin Level 4.7 g/dl (3.5-5.0); Chloride 99 mmol/L (98-107); Potassium 4.3 mmoL/L (3.5-5.1); Sodium 136 mmol/L (136-145)
[2024-05-11 14:46] LABS: Blood Urea Nitrogen 18 mg/dl (7-17); Estimated Glomerular Filt Rate 83 ml/min (>60); GFR (African American) 100 ML/MIN (>60)
[2024-05-11 14:47] LABS: Alanine Aminotransferase 23 U/L (12-78); Alkaline Phosphatase 58 U/L (38-126); Anion Gap 8.3 mEq/L (5-15); Aspartate Amino Transferase 31 U/L (14-36); Bilirubin,Direct 0.1 mg/dl (0.0-0.4); Bilirubin,Indirect 0.9 mg/dL (0.0-0.9); Bilirubin,Unconjugated 0.9 mg/dL (0.0-1.1); Calcium 9.9 mg/dl (8.4-10.2); Carbon Dioxide 33 mmol/L (22.0-30.0); Cholesterol 156 mg/dl (140-200); Glucose 114 mg/dl (74-100); Magnesium 2.1 mg/dl (1.6-2.3); Total Protein,Serum 7.1 g/dl (6.3-8.2); Triglycerides 129 mg/dl (30-150); VLDL Cholesterol 26 mg/dL (0-40)
[2024-05-11 14:48] LABS: Chol/HDL Ratio 2.3 (1-3.5); HDL Cholesterol 68 mg/dl (40-60)
[2024-05-11 14:58] LABS: Direct LDL Cholesterol 54.42 mg/dL (100-129)
[2024-05-11 15:04] LABS: Free T4 (Free Thyroxine) 1.22 ng/dl (0.78-2.19)
[2024-05-11 15:18] LABS: Thyroid Stimulating Hormone 0.88 uIU/mL (0.465-4.68)
== END 2024-05-11 23:59 | disposition home or self-care (01) ==
LOC: LAB 13:26
PROVIDERS: PCP Family Medicine; Visit Provider Internal Medicine
DX: I25.10 Atherosclerotic heart disease of native coronary artery without angina pectoris (principal); I50.20 Unspecified systolic (congestive) heart failure; E87.1 Hypo-osmolality and hyponatremia; E87.6 Hypokalemia; I10 Essential (primary) hypertension
CPT/HCPCS: 36415; 80048; 80061; 80076; 83735; 84439; 84443; 85025

== ENCOUNTER 2024-10-25 14:37 | Outpatient (CLI) | payer BC, SELFPAY ==
--- OUTSIDE RECORDS SUMMARY | 2024-08-28 13:00 | XMS_ITS | Encounter Summary ---
Author Organization [facility] Address [address] [place] [address] Care Team Providers Care Marketing Project Specialist Name Role Phone Joleen Jacinto MD Primary Care Provider [phone] Reason for Visit * Reason Comments Annual Exam Immunizations declined Encounter Details Date Type Department Care Team (Late st Contact Info) Description 08/28/2024 1:00 PM EDT Office Visit [facility] [address] [place] [address] Joleen Jacinto MD [address] [place] [address] Routine general medical examination at a health care facility (Primary Dx); Chronic obstructive pulmonary disease, unspecified COPD type (CMS/HCC); HFrEF (heart failure with reduced ejection fraction) ([facility]/HCC); Primary hypertension; Generalized anxiety disorder Social History Tobacco Use Types Packs/Day Years Used Date Smoking Tobacco: Former Cigarettes 0.5 30 1 977 - 2007 Passive Smoke Exposure: Never Smokeless Tobacco: Never Alcohol Use Standard Drinks/Week Comments Never 0 (1 standard drink = 0.6 oz pur e alcohol) Humiliation, Afraid, Rape, and Kick questionnair e Answer Date Recorded Within the last year, have y ou been afraid of your partner or ex-partner? No 03/14/2024 Within the last year, have y ou been humiliated or emotionally abused in other ways by your partner or ex-partner? No Within the last year, have y ou been kicked, hit, slapped, or otherwise physically hurt by your partner or ex-partner? No 03/14/2024 Within the last year, have y ou been raped or forced to have any kind of sexual activity by your partner or ex-partner? No 03/14/2024 PHQ-2 Answer Date Recorded Patient Health Questionnaire-2 Score 0 08/28/2024 Hunger Vital Sign Answer Date Recorded Within the past 12 months, y ou worried that your food would run out before you got the money to buy more. Never true 03/14/19 25 Within the past 12 months, t he food you bought just didn't last and you didn't have money to get more. Never true 03/14/2024 PRAPARE - Transportation Answer Date Re corded In the past 12 months, has l ack of transportation kept you from medical appointments or from getting medications? No 02/23 In the past 12 months, has l ack of transportation kept you from meetings, work, or from getting things needed for daily living? No 03/14/2024 PHQ-9 Answer Date Recorded Patient Health Questionnaire-9 Score 0 08/28/2024 Housing Stability Vital Sign Answer Jacob e Recorded In the last 12 months, was t here a time when you were not able to pay the mortgage or rent on time? No 03/14/2024 Number of Times Moved in the Last Year Not on fi le 03/14/2024 At any time in the past 12 m [facility], were you homeless or living in a usp (including now)? No 03/14/2024 Utilities Answer Date Recorded In the past 12 months has th e electric, gas, oil, or water company threatened to shut off services in your home? No 03/14/2024 PHQ-2A Answer Date Recorded Patient Health Questionnaire-2 Score 0 06/04/2022 Comments No Sex and Gender Information Value Date Recorded Sex Assigned at Not on file Legal Sex Female 6:39 PM EDT Gender Identity Not on file Sexual Orientation Not on file documented as of this encounter Last Filed Vital Signs Vital Sign Reading Time Taken Comments Blood Pressure 134/72 08/28/2024 12:54 PM EDT Pulse 83 08/28/2024 12:54 PM EDT Temperature 37 C (98.6 F) 08/28/2024 12:54 PM EDT Respiratory Rate 16 08/28/2024 12:5 4 PM EDT Oxygen Saturation 92% 08/28/2024 12: 54 PM EDT Inhaled Oxygen Concentration - - Weight 50.8 kg (111 lb 15.9 oz) 025 12:54 PM EDT Height 157.5 cm (5' 2 ) 08/28/2024 12:5 4 PM EDT Body Mass Index 20.48 08/28/2024 12:54 PM EDT documented in this encounter Functional Status * Over the past 2 weeks, how often have you been bothered by any of the following problems? Question Answer Date of Assessment Author Little interest or pleasure in doing things Not at all 08/28/2024 12:57 PM EDT Robyn Jama Feeling down, depressed, or hopeless Not at all 08/2024 12:57 PM EDT Robyn Jama Patient Health Questionnaire-2 Score 0 08/2024 12:57 PM EDT Robyn Jama * Question Answer Date of Assessment Author Trouble falling or staying a sleep, or sleeping too much Not at all 08/28/2024 12:57 PM EDT Robyn Jama Feeling tired or having homer le energy Not at all 08/28/2024 12:57 PM EDT Robyn Jama Poor appetite or overeating Not at all 08/28/2024 12 :57 PM EDT Robyn Jama Feeling bad about yourself - or that you are a failure or have let yourself or your family down Not at all 08/28/2024 12:57 PM EDT Edwige Jama Trouble concentrating on thi ngs, such as reading the newspaper or watching television Not at all 08/28/2024 12:57 PM EDT Robyn Jama Moving or speaking so slowly that other people could have noticed? Or the opposite - being so fidgety or restless that you have been moving around a lot more than usual. Not at all 08/28/2024 12:57 PM EDT Robyn Jama Thoughts that you would be b duran off or hurting yourself in some way Not at all 08/28/2024 12:57 PM EDT Robyn Jama Patient Health Questionnaire-9 Score 0 08/2024:57 PM EDT Robyn Jama * Calculated C-SSRS Risk Score (Lifetime/Recent) Answer Date of Assessment Author No Risk Indicated 08/28/2024 12:57 PM EDT Robyn Jama * If you checked off any problems on this questionnaire so far, Question Answer Date of Assessment Author How difficult have these problems made it for you to do your work, take care of things at home, or get along with other people? Not difficult at all 08/28/2024 12:57 PM EDT Robyn Jama * Question Answer Date of Assessment Author 1. Wish to be (Past 1 Month) No 025 12:57 PM EDT Robyn Jama 2. Non-Specific Active Suici vito Thoughts (Past 1 Month) No 08/28/2024 12:57 PM EDT Robyn Jama 6. Suicidal Behavior (Lifetime) No 12:57 PM EDT Robyn Jama documented as of this encounter Miscellaneous Notes * Progress Notes - Joleen Jacinto MD - 08/28/2024 1:00 PM EDT Office Progress Note Subjective Annabel Marie is a 68 y.o. female who presents for Annual Exam and Immunizations (declined). History of Present Illness The patient presents for a routine checkup. She reports feeling well overall, with her medications providing significant relief. She is able toperform all necessary household tasks independently. She has been under the care of a pulmonologistand interior design program chair, both of whom have not made any changes to her medication regimen. Her next appointments with them are scheduled for 10/2024. She uses oxygen during strenuous activities and throughout the night. She also uses inhalers as part of her treatment plan. She experiences difficulty in hot weather conditions. She has a history of COPD and finds Mucinex helpful in managing her symptoms. She is currently on losartan and takes a sleeping pill once daily at night. She reports no issues with bowel movements or urination. However, she does experience occasional dizziness when changing positions quickly. She has a history of easy bruising, which she attributes to thin skin rather than daily aspirin use. She has expressed interest in receiving the pneumonia vaccine but prefers to wait a while longer. She had a colonoscopy in 2016, which revealed polyps, and is due for a repeat procedure in 2020. Sherecently underwent a mammogram and had cataract surgery, which has improved her vision. PAST SURGICAL HISTORY: Cataract surgery SOCIAL HISTORY She lives with her . The following sections have been reviewed and updated during this encounter: Tobacco Allergies Meds Problems Med Hx Surg Hx Fam Hx Objective Blood pressure 134/72, pulse 83, temperature 37 ??C (98.6 ??F), resp. rate 16, height 1.575 m (5' 2 ), weight 50.8 kg (111 lb 15.9 oz), SpO2 92%. Body mass index is 20.48 kg/m??. Physical Exam Constitutional: General: She is not in acute distress. Appearance: She is well-developed. HENT: Head: Normocephalic and atraumatic. Right Ear: Tympanic membrane and external ear normal. Left Ear: Tympanic membrane and external ear normal. Nose: Nose normal. No congestion. Mouth/Throat: Mouth: Mucous membranes are moist. Pharynx: Oropharynx is clear. Eyes: Extraocular Movements: Extraocular movements intact. Conjunctiva/sclera: Conjunctivae normal. Pupils: Pupils are equal, round, and reactive to light. Neck: Thyroid: No thyromegaly. Cardiovascular: Rate and Rhythm: Normal rate and regular rhythm. Pulses: Normal pulses. Pulmonary: Effort: Pulmonary effort is normal. Breath sounds: Normal breath sounds. Abdominal: General: Bowel sounds are normal. There is no distension. Palpations: Abdomen is soft. There is no mass. Tenderness: There is no abdominal tenderness. Musculoskeletal: General: Normal range of motion. Cervical back: Normal range of motion and neck supple. Right lower leg: No edema. Left lower leg: No edema. Lymphadenopathy: Cervical: No cervical adenopathy. Skin: General: Skin is warm and dry. Findings: No rash. Neurological: General: No focal deficit present. Mental Status: She is alert and oriented to person, place, and time. Motor: Motor function is intact. Gait: Gait is intact. Deep Tendon Reflexes: Reflexes are normal and symmetric. Psychiatric: Mood and Affect: Mood normal. Behavior: Behavior normal. Assessment/Plan Diagnoses and all orders for this visit: Routine general medical examination at a health care facility Chronic obstructive pulmonary disease, unspecified COPD type (CMS/[facility]) HFrEF (heart failure with reduced ejection fraction) ([facility]) Primary hypertension - losartan (Cozaar) 100 MG tablet; Take 1 tablet by mouth daily. Generalized anxiety disorder - QUEtiapine (SEROquel) 25 MG tablet; Take 1 tablet by mouth nightly. Assessment & Plan Chronic obstructive pulmonary disease: - Stable symptoms reported; continues using oxygen and inhalers as needed. - Follow-up with neon sign worker scheduled for 10/2024 for another breathing test. - Recent blood work reviewed; kidneys, liver, electrolytes, cholesterol, thyroid, and blood counts are normal. - Advised to continue current medication regimen, including albuterol and Anoro inhaler. Heart failure: - Regulatory Services Consultant noted stable condition; no changes in medications. - Current medications include bisoprolol, Farxiga, spironolactone, and losartan. - Occasional dizziness when changing positions, likely due to heart medications. - Advised to continue current medication regimen. Insomnia: - Currently taking quetiapine once a day at night for sleep; reports good results. - Advised to continue this medication. Easy bruising: - Reports easy bruising due to thin skin and minor trauma; no daily aspirin use. - Recent blood work reviewed; no additional blood work needed as results are normal. - Advised to monitor for any significant changes. Health maintenance: - Blood pressure readings are within the normal range. - Cholesterol level satisfactory at 129; thyroid function tests normal; no evidence of anemia. - Up to date with tetanus vaccine, last received in 2016; booster due in 2026. - Declined Prevnar 20 vaccine at this time, discussed importance of pneumonia vaccine with her underlying lung disease encouraged to think about it and or discuss with her neon sign worker - Colonoscopy recommended due to history of polyps; patient declined for now, discussed risk of past tubular adenoma and subsequent polyp formation with potential for colon cancer - 90-day supply of medications with a year's worth of refills provided. Follow-up: - Follow-up in 1 year or sooner if necessary. Chronic obstructive pulmonary disease, unspecified Other cardiomyopathies Verbal consent was obtained to use ambient listening technology to assist in the documentation of the encounter: yes documented in this encounter Plan of Treatment Not on file documented as of this encounter Visit Diagnoses Diagnosis Routine general medical examination at a [facility] facility- Primary Chronic obstructive pulmonary disease, unspecified COPD type ([facility]) HFrEF (heart failure with reduced ejection fraction) ([facility]) Primary hypertension Unspecified essential hypertension Generalized anxiety disorder documented in this encounter Additional Health Concerns Assessment Noted Time PHQ-9 Depression Total Score: 0 08/29/19 25 12:57 PM EDT A fall risk assessment has been complete d for the patient 08/28/2024 12:57 PM EDT A Body Mass Index follow-up plan has been documented for the patient 08/28/2024 1:44 PM EDT documented as of this encounter Care Teams Marketing Project Specialist Relationship Specialty Start Date End Date Joleen Jacinto MD [address] [place] [address] PCP - General 07/05/20 documented as of this encounter
--- OUTSIDE RECORDS SUMMARY | 2024-10-25 14:55 | XMS_ITS | Encounter Summary ---
Author Organization [facility] Address [address] [place] [address] Care Team Providers Care Bumper Operator Name Role Phone Joleen Jacinto MD Primary Care Provider [phone] Encounter Details Date Type Department Care Team (Late st Contact Info) Description 07/18/2024 Outside Procedure External Location [address] [place] [address] Joleen Jacinto MD [address] [place] [address] Social History Tobacco Use Types Packs/Day Years Used Date Smoking Tobacco: Former Cigarettes 0.5 30 1 977 - 2007 Smokeless Tobacco: Never Alcohol Use Standard Drinks/Week [...] Date Recorded Patient Health Questionnaire-2 Score 0 03/14/2024 Hunger Vital Sign Answer Date Recorded Within [...] Date Recorded Patient Health Questionnaire-9 Score 0 03/14/2024 Housing Stability Vital Sign Answer Jacob e Recorded In the last 12 months, was t here a time when you were not able to pay the mortgage or rent on time? No 03/14/2024 Number of Times Moved in the Last Year Not on fi le 03/14/2024 At any time in the past 12 m [facility], were you homeless or living in a fpc (including now)? No 03/14/2024 Utilities Answer Date [...] on file documented as of this encounter Functional Status * Calculated C-SSRS Risk Score (Lifetime/Recent) Answer Date of Assessment Author No Risk Indicated 07/20/2024 1:38 PM EDT Lisa Ashley * Question Answer Date of Assessment Author 1. Wish to be (Past 1 Month) No 025 1:38 PM EDT Lisa Ashley 2. Non-Specific Active Suici vito Thoughts (Past 1 Month) No 07/20/2024 1:38 PM EDT Lisa Ashley 6. Suicidal Behavior (Lifetime) No 1:38 PM EDT Lisa Ashley documented as of this encounter Plan of Treatment Not on file documented as of this encounter Procedures Procedure Name Priority Date/Time Associated Diagnosis Comments MAMMOGRAPHY BREAST SCREENING TOMOSYNTHESIS BILATERAL 07/18/2024 2:52 PM EDT documented in this encounter Results * Mammography Breast Screening Tomosynthesis Bilateral (07/18/2024 2:52 PM EDT) Anatomical Region Laterality Modality Breast Bilateral Mammography 07/18/2024 2:52 PM EDT Narrative 07/18/2024 3:23 [place] [address] Name: TIFFANY RUCKER Exam Date: 07/18/2024 : 1955 Age 68 years Gender: F Physician: Joleen Jacinto Facility: [facility] Facility HSV: Outpatient Exam: MIRZA SCRN MAMMO W/CAD BILAT Exam: 3-D screening mammography including tomosynthesis and CAD (Computer Assisted Detection). Clinical indication: Asymptomatic screening exam Comparison: Exams to 2019 TECHNIQUE: Routine bilateral 2D screening mammogram with CC and MLO views obtained. 3-D tomosynthesis and Computer assisted detection were utilized for this exam. BREAST DENSITY: There are scattered areas of fibroglandular density FINDINGS: No suspicious mass, architectural distortion, or suspicious calcifications are present. IMPRESSION: No evidence of malignancy in either breast Recommendation: Annual screening mammography recommended in one year The results of this report will be communicated to the patient by letter in layman's terms. ACR BI-RADS: BI-RADS assessment category 1: Negative mammogram Mammography does not detect approximately 10-15% of breast cancers. A normal mammogram does not exclude breast cancer in a patient with palpable mass or abnormal findings on physical examination. These patients may need biopsies and when clinically indicated a biopsy should not be postponed because of a normal mammogram. If the patient has breast surgery or biopsy, FDA/MQSA Regulatory Guidelines mandate that this facility receive pathologic results for follow-up correlation. Electronically signed by: Lee Hannah MD 07/18/2024 03:20 PM EDT Dictated By: Lee Hannah Transcribed By: Transcribed On: 07/18/2024 3:20 PM Electronically signed by: Lee Hannah 07/18/2024 Thank you for referring TIFFANY RUCKER to [facility]. Legally authenticated by JORGE RUSSO 2024-07-18 15:20:27 Procedure Note Provider, [facility] - 07/18/2024 [place] [address] Name: TIFFANY RUCKER Exam Date: 07/18/2024 : 1955 Age 68 years Gender: F Physician: Joleen Jacinto Facility: [facility] Facility HSV: Outpatient Exam: MIRZA SCRN MAMMO W/CAD BILAT Exam: 3-D screening mammography including tomosynthesis and CAD(Computer Assisted Detection). Clinical indication: Asymptomatic screening exam Comparison: Exams to 2019 TECHNIQUE: Routine bilateral 2D screening mammogram with CC and MLOviews obtained. 3-D tomosynthesis and Computer assisted detection were utilizedfor this exam. BREAST DENSITY: There are scattered areas of fibroglandular density FINDINGS: No suspicious mass, architectural distortion, or suspicious calcifications are present. IMPRESSION: No evidence of malignancy in either breast Recommendation: Annual screening mammography recommended in one year The results of this report will be communicated to the patient by letterin layman's terms. ACR BI-RADS: BI-RADS assessment category 1: Negative mammogram Mammography does not detect approximately 10-15% of breast cancers. Anormal mammogram does not exclude breast cancer in a patient with palpable massor abnormal findings on physical examination. These patients may needbiopsies and when clinically indicated a biopsy should not be postponed because ofa normal mammogram. If the patient has breast surgery or biopsy, FDA/[place] Regulatory Guidelines mandate that this facility receive pathologicresults for follow-up correlation. Electronically signed by: Lee Hannah MD 07/18/2024 03:20 PM EDTRP Dictated By: Lee Hannah Transcribed By: Transcribed On: 07/18/2024 3:20 PM Electronically signed by: Lee Hannah 07/18/2024 Thank you for referring TIFFANY RUCKRE to [facility]. Legally authenticated by JORGE RUSSO 2024-07-18 15:20:27 us Joleen Jacinto MD IMG BI PROCEDURES Final Resul t documented in this encounter Visit Diagnoses Not on filedocumented in this encounter Additional Health Concerns Infection Onset Date Last Indicated Resolved Time COVID-19 Rule-Out 07/20/2024 07/20/2024 07/20/2024 2:26 PM EDT Assessment Noted Time PHQ-9 Depression Total Score: 0 03/14/19 10:55 AM EST A fall risk assessment has been complete d for the patient 03/14/2024 10:55 AM EST A Body Mass Index follow-up plan has been documented for the patient 03/14/2024 12:08 PM EST documented as of this encounter Care Teams Bumper Operator Relationship Specialty Start Date End Date Joleen Jacinto MD [address] [place] [id number] PCP - General 07/05/20 documented as of this encounter
--- OUTSIDE RECORDS SUMMARY | 2024-10-25 14:55 | XMS_ITS | Encounter Summary ---
Author Organization Healthcare Address [address] [place] [address] Care Team Providers Care It Security Analyst Name Role Phone Joleen Jacinto MD Primary Care Provider [phone] Encounter Details Date Type Department Care Team ([facility] st Contact Info) Description 06/04/2022 Outside Procedure External Location [address] [place] [address] Joleen Jacinto MD [address] [place] [phone] Social History Tobacco Use Types Packs/Day Years Used Date Smoking Tobacco: Former Cigarettes 0.5 30 1 977 - 2007 Smokeless Tobacco: Never PHQ-2 Answer Date Recorded Patient Health Questionnaire-2 Score 0 06/04/2022 PHQ-2A Answer Date Recorded Patient Health Questionnaire-2 Score 0 06/04/2022 Comments Unknown Sex and Gender Information Value Date Recorded Sex Assigned at Not on file Legal Sex Female 6:39 PM EDT Gender Identity Not on file Sexual Orientation Not on file COVID-19 Exposure Response Date Recorded In the last 10 days, have yo u been in contact with someone who was confirmed or suspected to have Coronavirus/COVID-19? No / Unsure 06/04/2022 10:19 AM EDT documented as of this encounter Functional Status * Over the past 2 weeks, how often have you been bothered by any of the following problems? Question Answer Date of Assessment Author Little interest or pleasure in doing things Not at all 06/04/2022 10:23 AM EDT Robyn Jama Feeling down, depressed, or hopeless Not at all 05/23 10:23 AM EDT Robyn Jama Patient Health Questionnaire-2 Score 0 0404/2022 10:23 AM EDT Robyn Jama documented as of this encounter Plan of Treatment Not on file documented as of this encounter Procedures Procedure Name Priority Date/Time Associated Diagnosis Comments XR CHEST 2 VIEWS 06/04/2022 11:1 6 AM EDT documented in this encounter Results * XR Chest 2 Views (06/04/2022 11:16 AM EDT) Anatomical Region Laterality Modality Chest Digital Radiogra phy 06/04/2022 11:1 6 AM EDT Narrative 06/04/2022 11:52 [place] [address] Name: TIFFANY RUCKER Exam Date: 06/04/2022 : 1955 Age 66 Gender: F Physician: Joleen Jacinto Facility: [facility] Facility HSV: Outpatient Exam: CHEST 2 VIEWS CHEST, 2 views HISTORY: Cough. COMPARISON: June 28, 2021. FINDINGS: Prominent interstitial markings, likely chronic. There is evidence of calcified granulomatous disease. Atherosclerosis is noted. There is no evidence of effusion. The mediastinum has a normal appearance. The cardiac silhouette is unremarkable. No acute osseous changes. IMPRESSION: No acute cardiopulmonary process. Dictated By: LEIGH FIERRO Transcribed By: Leigh Fierro Transcribed On: 06/04/2022 11:40 AM Electronically signed by: LEIGH FIERRO 06/04/2022 [facility]. Legally authenticated by POPE LEIGH Gómez 2022-06-04 11:40:00 Procedure Note Provider, Gabriele Sumas - 06/04/2022 [place] [address] Name: JANES RUCKERA Exam Date: 06/04/2022 : 1955 Age 66 Gender: F Physician: Joleen Jacinto Facility: [facility] Facility HSV: Outpatient Exam: CHEST 2 VIEWS CHEST, 2 views HISTORY: Cough. COMPARISON: June 28, 2021. FINDINGS: Prominent interstitial markings, likely chronic. There isevidence of calcified granulomatous disease. Atherosclerosis is noted. There is no evidence of effusion. The mediastinum has a normal appearance.The cardiac silhouette is unremarkable. No acute osseous changes. IMPRESSION: No acute cardiopulmonary process. Dictated By: LEIGH FIERRO Transcribed By: Leigh Fierro Transcribed On: 06/04/2022 11:40 AM Electronically signed by: LEIGH FIERRO 06/04/2022 Thank you for referring [facility] to [facility]. Legally authenticated by POPE LEIGH Gómez 2022-06-04 11:40:00 us Joleen Jacinto MD IMG XR PROCEDURES Final Resul t documented in this encounter Visit Diagnoses Not on filedocumented in this encounter Additional Health Concerns Infection Onset Date Last Indicated Resolved Time Influenza 03/14/2024 03/14/2024 04/11/2024 5:24 AM EST COVID-19 Rule-Out 07/20/2024 07/20/2024 07/20/2024 2:26 PM EDT Assessment Noted Time A fall risk assessment has been complete d for the patient 06/04/2022 10:23 AM EDT documented as of this encounter Care Teams It Security Analyst Relationship Specialty Start Date End Date Joleen Jacinto MD [address] [place] [address] PCP - General 07/05/20 documented as of this encounter
--- OUTSIDE RECORDS SUMMARY | 2024-10-25 14:55 | XMS_ITS | Encounter Summary ---
Author Organization Healthcare Address [address] [place] [address] Care Team Providers Care Paraffin Plant Operator Name Role Phone Joleen Jacinto MD Primary Care Provider [phone] Encounter Details Date Type Department Care Team ([facility] st Contact Info) Description 06/28/2021 Outside Procedure External Location [address] [place] [address] Provider, Gabriele [place] Social History Tobacco Use Types Packs/Day Years Used Date Smoking Tobacco: Former Cigarettes 0.5 30 Smokeless Tobacco: Never PHQ-2 Answer Date Recorded Patient Health Questionnaire-2 Score 0 02/03/2021 Comments Unknown Sex and Gender Information Value Date Recorded Sex Assigned at Not on file Legal Sex Female 6:39 PM EDT Gender Identity Not on file Sexual Orientation Not on file documented as of this encounter Plan of Treatment Not on file documented as of this encounter Procedures Procedure Name Priority Date/Time Associated Diagnosis Comments CT ANGIO CHEST 06/28/2021 4:53 PM EDT documented in this encounter Results * CT Angio Chest (06/28/2021 4:53 PM EDT) Anatomical Region Laterality Modality Chest Computed Tomogra phy 06/28/2021 4:5 3 PM EDT [facility] PROCEDURES Fi nal Result documented in this encounter Visit Diagnoses Not on filedocumented in this encounter Additional Health Concerns Infection Onset Date Last Indicated Resolved Time Influenza 03/14/2024 03/14/2024 04/11/2024 5:24 AM EST COVID-19 Rule-Out 07/20/2024 07/20/2024 07/20/2024 2:26 PM EDT Assessment Noted Time A fall risk assessment has been complete d for the patient 02/03/2021 1:43 PM EST documented as of this encounter Care Teams Paraffin Plant Operator Relationship Specialty Start Date End Date Joleen Jacinto MD [address] [place] [id number] PCP - General 07/05/20 documented as of this encounter
--- OUTSIDE RECORDS SUMMARY | 2024-10-25 14:55 | XMS_ITS | Encounter Summary ---
Author Organization Healthcare Address [address] [place] [address] Care Team Providers Care Drywall Hanger Framer Name Role Phone Joleen Jacinto MD Primary Care Provider [phone] Encounter Details Date Type Department Care Team ([facility] st Contact Info) Description 06/28/2021 Outside Procedure External Location [address] [place] [address] Provider, [facility] Social History Tobacco Use Types Packs/Day Years [...] Priority Date/Time Associated Diagnosis Comments XR CHEST 1 VIEW 06/28/2021 3:28 PM EDT documented in this encounter Results * XR Chest 1 View (06/28/2021 3:28 PM EDT) Anatomical Region Laterality Modality Chest Radiographic Anna ging 06/28/2021 3:28 PM EDT Narrative 06/29/2021 8:21 AM EDT [address] [address] Name: TIFFANY RUCKER Exam Date: 06/28/2021 : 1955 Age 65 Gender: F Physician: KAYLA CALDERON Facility: [facility] Facility HSV: Outpatient Exam: CHEST PORTABLE PORTABLE CHEST HISTORY: Shortness of air COMPARISON: December 23, 2018 FINDINGS: The heart size is within normal limits.The mediastinum is unremarkable. The lungs are hyperinflated consistent with COPD. No acute pulmonary abnormality is identified. There is no pneumothorax. The bony thorax in intact. IMPRESSION: No acute cardiopulmonary process. Dictated By: ANDREW WEBB Transcribed By: ANDREW WEBB Transcribed On: 06/29/2021 8:09 AM Electronically signed by: ANDREW WEBB 06/29/2021 Thank you for referring TIFFANY RUCKER to [facility]. Legally authenticated by JON Ramirez III 2021-06-29 08:09:31 Procedure Note Provider, [facility] 06/29/2021 [place] [address] Name: TIFFANY RUCKER Exam Date: 06/28/2021 : 1955 Age 65 Gender: F Physician: KAYLA CALDERON Facility: [facility] Facility HSV: Outpatient Exam: CHEST PORTABLE PORTABLE CHEST HISTORY: Shortness of air COMPARISON: December 23, 2018 FINDINGS: The heart size is within normal limits.The mediastinum is unremarkable. The lungs are hyperinflated consistent with COPD. No acute pulmonary abnormality is identified. There is no pneumothorax. The bonythorax in intact. IMPRESSION: No acute cardiopulmonary process. Dictated By: ANDREW WEBB Transcribed By: ANDREW WEBB Transcribed On: 06/29/2021 8:09 AM Electronically signed by: ANDREW WEBB 06/29/2021 Thank you for referring TIFFANY RUCKER to [facility]. Legally authenticated by JON Ramirez III 2021-06-29 08:09:31 Generic [place] Provider IMG XR PROCEDURES Fi nal Result documented in this [...] documented as of this encounter Care Teams Drywall Hanger Framer Relationship Specialty Start Date End Date Joleen Jacinto MD [address] [place] [id number] PCP - General 07/05/20 documented as of this encounter
--- OUTSIDE RECORDS SUMMARY | 2024-10-25 14:55 | XMS_ITS | Encounter Summary ---
Author Organization Healthcare Address [address] [place] [address] Care Team Providers Care Attending Urologist Name Role Phone Joleen Jacinto MD Primary Care Provider [phone] Encounter Details Date Type Department Care Team ([facility] st Contact Info) Description 03/06/2022 Outside Procedure External Location [address] [place] [address] Joleen Jacinto MD [address] [place] [address] Social History Tobacco Use Types Packs/Day [...] Diagnosis Comments MAMMOGRAPHY BREAST SCREENING TOMOSYNTHESIS BILATERAL 03/06/2022 2:56 PM EST documented in this encounter Results * Mammography Breast Screening Tomosynthesis Bilateral (03/06/2022 2:56 PM EST) Anatomical Region Laterality Modality Breast Bilateral Mammography 03/06/2022 2:56 PM EST Narrative 03/09/2022 8:24 AM EST [address] [address] Name: TIFFANY RUCKER Exam Date: 03/06/2022 : 1955 Age 66 Gender: F Physician: Joleen Jacinto Facility: [facility] Facility HSV: Outpatient Exam: MIRZA SCRN MAMMO W/CAD BILAT MAMMOGRAM SCREENING BILATERAL WITH TOMOSYNTHESIS HISTORY: Routine screening exam COMPARISON: March 03, 2021 FINDINGS: Standard views were obtained. There are scattered fibroglandular densities. Stable asymmetric density in the left upper outer breast. Benign-appearing calcifications are present. No mass, suspicious calcifications or architectural distortion is present. IMPRESSION: No mammographic evidence of malignancy. BI-RADS 2: Benign RECOMMENDATION: Annual mammography CAD was utilized during interpretation. The patient will be sent a letter from the mammography department with their mammography findings. Dictated By: LEIGH FIERRO Transcribed By: Leigh Fierro Transcribed On: 03/09/2022 8:12 AM Electronically signed by: LEIGH FIERRO 03/09/2022 Thank you for referring TIFFANY RUCKER to [facility]. Legally authenticated by POPE LEIGH Gómez 2022-03-09 08:12:12 Procedure Note Provider, Gabriele [place] - 03/09/2022 [place] [address] Name: TIFFANY RUCKER Exam Date: 03/06/2022 : 1955 Age 66 Gender: F Physician: Joleen Jacinto Facility: [facility] Facility HSV: Outpatient Exam: MIRZA SCRN MAMMO W/CAD BILAT MAMMOGRAM SCREENING BILATERAL WITH TOMOSYNTHESIS HISTORY: Routine screening exam COMPARISON: March 03, 2021 FINDINGS: Standard views were obtained. There are scatteredfibroglandular densities. Stable asymmetric density in the left upper outer breast. Benign-appearing calcifications are present. No mass, suspicious calcifications or architectural distortion is present. IMPRESSION: No mammographic evidence of malignancy. BI-RADS 2: Benign RECOMMENDATION: Annual mammography CAD was utilized during interpretation. The patient will be sent a letter from the mammography department withtheir mammography findings. Dictated By: LEIGH FIERRO Transcribed By: Leigh Fierro Transcribed On: 03/09/2022 8:12 AM Electronically signed by: LEIGH FIERRO 03/09/2022 Thank you for referring TIFFANY RUCKER to [facility]. Legally authenticated by POPE LEIGH Gómez 2022-03-09 08:12:12 us Joleen Jacinto MD IMG BI PROCEDURES [...] documented as of this encounter Care Teams Attending Urologist Relationship Specialty Start Date End Date oJleen Jacinto MD [address] [place] [address] PCP - General 07/05/20 documented as of this encounter
--- OUTSIDE RECORDS SUMMARY | 2024-10-25 14:55 | XMS_ITS | Encounter Summary ---
Author Organization [facility] Address [address] [place] [address] Care Team Providers Care Complex Director Name Role Phone Joleen Jacinto MD Primary Care Provider [phone] Reason for Visit * Reason Comments Med Refill Encounter Details Date Type Department Care Team (Late st Contact Info) Description 01/31/2021 Refill Family [facility] Community Medicine [address] [place] [address] Joleen Jacinto MD [address] [place] [address] Social History Tobacco Use Types Packs/Day Years Used Date Smoking Tobacco: Never PHQ-2 Answer Date Recorded Patient Health Questionnaire-2 Score 0 02/03/2021 Comments Unknown Sex and Gender Information Value Date Recorded Sex Assigned at Not on file Legal Sex Female 6:39 PM EDT Gender Identity Not on file Sexual Orientation Not on file COVID-19 Exposure Response Date Recorded In the last month, have you been in contact with someone who was confirmed or suspected to have Coronavirus / COVID-19? Unable to assess 02/03/2021 1:39 PM EST documented as of this encounter Functional Status * Over the past 2 weeks, how often have you been bothered by any of the following problems? Question Answer Date of Assessment Author Little interest or pleasure in doing things Not at all 02/03/2021 1:43 PM EST Robyn Jama Feeling down, depressed, or hopeless Not at all 01/22 1:43 PM EST Robyn Jama Patient Health Questionnaire-2 Score 0 01/22 1:43 PM EST Evita, Kasha L * Calculated C-SSRS Risk Score (Lifetime/Recent) Answer Date of Assessment Author No Risk Indicated 02/03/2021 1:43 PM EST Edwige Jama * Question Answer Date of Assessment Author 1. Wish to be (Past 1 Month) No 021 1:43 PM EST Evita Kasha L 2. Non-Specific Active Suici vito Thoughts (Past 1 Month) No 02/03/2021 1:43 PM EST Evita Kasha L 6. Suicidal Behavior (Lifetime) No 1:43 PM EST Robyn Jama L documented as of this encounter Plan of Treatment Not on file documented as of this encounter Visit Diagnoses Not on filedocumented in this encounter Additional Health Concerns Infection Onset Date Last Indicated Resolved Time Influenza 03/14/2024 03/14/2024 04/11/2024 5:24 AM EST COVID-19 Rule-Out 07/20/2024 07/20/2024 07/20/2024 2:26 PM EDT documented as of this encounter Care Teams Complex Director Relationship Specialty Start Date End Date Joleen Jacinto MD [address] [place] [address] PCP - General 07/05/20 documented as of this encounter
--- OUTSIDE RECORDS SUMMARY | 2024-10-25 14:55 | XMS_ITS | Clinical Summary ---
Author Organization [facility] Address [address] [place] [address] Care Team Providers Care Field Sales Trainer Name Role Phone Joleen Jacinto MD Primary Care Provider [phone] Allergies No known active allergies Medications albuterol (2.5 MG/3ML) 0.083% nebulizer solutionIndicati ons:Pulmonary emphysema, unspecified emphysema type (CMS/HCC) Take 3 mL (2.5 mg total) by nebulization 4 (four) times a day if needed for wheezing or shortness of breath. 3 mL 3 3 Active bisoprolol (Zebeta) 5 MG tablet Take 0.5 tablets (2.5 mg) by mouth 1 (one) time each day. 3 Active Farxiga 10 MG tablet Take 1 tablet (10 mg) by mouth 1 (one) time each day. 4 Active spironolactone (Aldactone) 25 MG tablet Take 0.5 tablets (12.5 mg) by mouth 1 (one) time each day. 4 Active Anoro Ellipta 62.5-25 MCG/ACT aerosol powder aerosol powder 1 Inhalation. 4 Active melatonin 3 MG tablet Take 1 tablet (3 mg) by mouth at night if needed for sleep. Active losartan (Cozaar) 100 MG tabletIndication s:Primary hypertension Take 1 tablet by mouth daily. 90 tablet 3 5 Active QUEtiapine (SEROquel) 25 MG tabletIndication s:Generalized anxiety disorder Take 1 tablet by mouth nightly. 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 Generalized anxiety disorder 10/11/2018 HTN (hypertension) 05/19/2014 Osteoporosis 05/19/2014 Encounters Date Type Department Care Team Description 08/28/2024 1:00 PM EDT Office Visit [facility] [address] [place] [address] Joleen Jacinto MD Routine general medical examination at a health care facility (Primary Dx); Chronic obstructive pulmonary disease, unspecified COPD type ([facility]/HCC); HFrEF (heart failure with reduced ejection fraction) ([facility]); Primary hypertension; Generalized anxiety disorder 08/28/2024 Travel 07/27/2024 Telephone [facility] [address] [place] [address] Joleen Jacinto MD from Last 3 Months Immunizations Immunization Administration Dates Next Due Hep A, Adult 08/03/2018,02/02/2018 Influenza Vaccine, Quadrival ent, Adjuvanted 12/11/2022 Influenza, high-dose, quadrivalent 12/05/2021 Influenza, injectable, quadr ivalent, preservative free 12/12/2019,12/23/2018,02/02/2018,2016 Influenza, seasonal, injectable 12/13/2013,12/07,12/03/2010 Influenza, trivalent, adjuvanted 01/27/2024 Sarata COVID-19 Vac cine (Purple Cap) 12+ 07/06/2020 Tdap 12/30/2016 Family History Medical History Relation Name Comments No Known Problems Father No Known Problems Mother Allergies Other Diabetes Other Anesthesia problems Neg Hx Malig Hyperthermia Neg Hx Relation Name Status Comments Father Mother Other Social History Tobacco Use Types Packs/Day Years Used Date Smoking Tobacco: Former Cigarettes 0.5 30 1 977 - 2007 Passive Smoke Exposure: Never Smokeless Tobacco: Never Tobacco Cessation:Counseling Given: Not Answered Alcohol Use Standard Drinks/Week Comments Never 0 [...] any time in the past 12 m [facility], were you homeless or living in a half-way (including now)? No 03/14/2024 Utilities Answer Date [...] on file Sexual Orientation Not on file Last Filed Vital Signs Vital Sign Reading [...] Mass Index 20.48 08/28/2024 12:54 PM EDT Plan of Treatment Health Maintenance Due Date Last Done Comments [facility]-Infant/Child/Adol SDOH Screenings 1955 [facility]-Pneumococcal Vaccine: 50+ Years (1 of 2 - PCV) 1973 CT Colonography 12/29/1999 FIT-DNA 12/29/1999 FIT 12/29/1999 FOBT 12/29/1999 Sigmoidoscopy 12/29/1999 [facility]-Zoster Vaccines (1 of 2) 2004 [facility]-RSV Vaccine: 60+ Years or (1 - Risk 60-74 years 1-dose series) 2014 [facility]-Bone Density Scan 03/03/2022 03/03/2021 [facility]-Diabetes: Hemoglobin A1C 03/23/2023, 06/29/2021, 03/05/2020, Additional history exists [facility]- SDOH Screenings 09/11/2024 [facility]-Adult SDOH Screenings 09/11/2024 03/14/2024 [id number] Vaccine ( season) 2024 01/27/2024, 12/11/2022, 12/05/2021, Additional history exists [facility]-Influenza Vaccine (#1) 10/23/202401/26, 12/11/2022, 12/05/2021, Additional history exists [facility]-Depression Screening 08/28/2025 08/28/2024, 07/0 08/2024 Colonoscopy 12/08/2025 12/09/2015 [facility]-Colorectal Cancer Screening 12/08/2025 [facility]-Breast Cancer Screening 07/18/202606/23, 03/06/2022, 03/03/2021 [facility]-DTaP,Tdap,and Td Vaccines (2 - Td or Tdap) 12/30/2026 12/30/2016 [facility]-Hepatitis C Screening Completed 02/02/2018 [facility]-Hepatitis A Vaccines Aged Out 08/03/2018, 01/22 No longer eligible based on patient's age to complete this topic HPV Vaccines Aged Out No longer eligi ble based on patient's age to complete this topic [facility]-HIB Vaccines Aged Out No longer e ligible based on patient's age to complete this topic [facility]-IPV Vaccines Aged Out No longer e ligible based on patient's age to complete this topic [facility]-Rotavirus Vaccines Aged Out No lo nger eligible based on patient's age to complete this topic Procedures Procedure Name Priority Date/Time Associated Diagnosis Comments MAMMOGRAPHY BREAST SCREENING TOMOSYNTHESIS BILATERAL 07/18/2024 2:52 PM EDT HEMOGLOBIN A1C Routine 03/23/2022 2:33 PM EST Primary hypertension Prediabetes DEXA BONE DENSITY 03/03/2021 1:3 8 PM EST HEPATITIS C ANTIBODY W/REFLEX TO HCV QUANT PCR Routine 02/02/2018 12:55 PM EST COLONOSCOPY EXTERNAL RESULT 12/09/2015 from Last 3 Months or Most Recently Relevant to Health Maintenance Results * Mammography Breast Screening Tomosynthesis Bilateral (07/18/2024 2:52 PM EDT) Anatomical Region Laterality Modality Breast Bilateral Mammography 07/18/2024 2:52 PM EDT Narrative 07/18/2024 3:23 PM EDT [address] [place] [address] Name: TIFFANY RUCKER Exam Date: 07/18/2024 : 1955 Age 68 years Gender: F Physician: Joleen Jacinto Facility: [facility] Facility HSV: Outpatient Exam: MIRZA SCRN MAMMO [...] Thank you for referring TIFFANY RUCKER to [facility]. Legally authenticated by JORGE RUSSO 2024-07-18 15:20:27 Procedure Note Provider, Gabriele Terrell - 07/18/[address] [address] Name: TIFFANY RUCKER Exam Date: 07/18/2024 : 1955 Age 68 years Gender: F Physician: Joleen Jacinto Facility: [facility] Facility HSV: Outpatient Exam: MIRZA SCRN MAMMO [...] Thank you for referring TIFFANY RUCKER to [facility]. Legally authenticated by JORGE RUSSO 2024-07-18 15:20:27 us Joleen Jacinto MD IMG BI PROCEDURES Final Resul t * Hemoglobin A1c (03/23/2022 2:33 PM EST) Hemoglobin A1c 5.5 <5.7 % 03/23/2022 9:50 PM EST [facility] Blood Venous blood specimen / Unknown Venipuncture / Unknown 03/23/2022 2:33 PM EST 03/23/2022 2:33 PM EST Narrative [facility] - 03/23/2022 9:50 PM EST HA1C Interpretive Data: Diagnosis of Diabetes: Diabetic > or = 6.5% Pre-diabetic 5.7 to 6.4% Non-diabetic < or = 5.6% Glycemic Targets for Type I and Type II Diabetics: Non- Adults <7.0% Adults <6.0% Children and Adolescents <7.5% Source: [place] [employer]. Standards of medical care in diabetes,2017. Diabetes Care.2017:40 (suppl 1):S1-S135. HbA1c assay performed by an ion-exchange chromatography method that is certified traceable to the DCCT. us Joleen Jacinto MD LAB BLOOD ORDERABLES Final Re sult [facility] [address] [place] [address] * Dexa Bone Density (03/03/2021 1:38 PM EST) Anatomical Region Laterality Modality L-spine Radiographic Anna ging 03/03/2021 1:38 PM EST Narrative 03/03/2021 4:03 PM EST [id number] [place] [address] Name: TIFFANY RUCKER Exam Date: 03/03/2021 : 1955 Age 65 Gender: F Physician: Joleen Jacinto Facility: [facility] Facility HSV: Outpatient Exam: DEXA BONE DENSITY AX BONE MINERAL DENSITOMETRY, DEXA SCAN CLINICAL HISTORY: Screening for osteoporosis. Comparison: 12/29/2013. FINDINGS: Bone densitometry calculations of the lumbar spine and femoral necks were obtained. Average BMD for the lumbar spine from L1-L4 is 0.775 g/sq cm. T-score is -3.4. Z-score is -1.8. Dual femoral neck BMD is 0.613 g/sq cm. T-score is -3.1. IMPRESSION: Osteoporosis with significant interval bone loss compared to prior. Films reviewed , interpreted and dictated by Dr. Lopez. Transcribed by Fredrick Ferrara PA-C. Dictated By: CHRISTAL LOPEZ Transcribed By: Rigoberto Lopez Transcribed On: 03/03/2021 3:51 PM Electronically signed by: CHRISTAL LOPEZ 03/03/2021 Thank you for referring TIFFANY RUCKER to [facility]. Legally authenticated by JOHN ALFARO 2021-03-03 15:51:32 Procedure Note Provider, [facility] - 03/03/2021 [place] [address] Name: TIFFANY RUCKER Exam Date: 03/03/2021 : 1955 Age 65 Gender: F Physician: Joleen Jacinto Facility: [facility] Facility HSV: Outpatient Exam: DEXA BONE DENSITY AX BONE MINERAL DENSITOMETRY, DEXA SCAN CLINICAL HISTORY: Screening for osteoporosis. Comparison: 12/29/2013. FINDINGS: Bone densitometry calculations of the lumbar spine and femoralnecks were obtained. Average BMD for the lumbar spine from L1-L4 is 0.775 g/sq cm. T-score is -3.4. Z-score is -1.8. Dual femoral neck BMD is 0.613 g/sq cm. T-score is -3.1. IMPRESSION: Osteoporosis with significant interval bone loss compared to prior. Films reviewed , interpreted and dictated by Dr. Lopez. Transcribed by Fredrick Ferrara PA-C. Dictated By: CHRISTAL LOPEZ Transcribed By: Rigoberto Lopez Transcribed On: 03/03/2021 3:51 PM Electronically signed by: CHRISTAL LOPEZ 03/03/2021 Thank you for referring TIFFANY RUCKER to [facility]. Legally authenticated by JOHN ALFARO 2021-03-03 15:51:32 us Joleen Jacinto MD IMG DXA PROCEDURES Final Resu lt * Hepatitis C Antibody (02/02/2018 12:55 PM EST) Hepatitis C Antibody NEGATIVE Reference Range: Negative [facility] 02/02/2018 12:5 5 PM EST 02/02/2018 6:08 PM EST us Joleen Jacinto MD LAB BLOOD ORDERABLES Final Re sult [facility] * COLONOSCOPY EXTERNAL RESULT (12/09/2015) Anatomical Region Laterality Modality Endoscopy Narrative 12/09/2015 Ordered by an unspecified provider. us External Provider GI PROCEDURE ORDERABLES Final Result from Last 3 Months or Most Recently Relevant to Health Maintenance Insurance MEDICARE [facility]1983 Care Teams Field Sales Trainer Relationship Specialty Start Date End Date Joleen Jacinto MD [address] [place] [address] PCP - General 07/05/20
--- OUTSIDE RECORDS SUMMARY | 2024-10-25 14:55 | XMS_ITS | Encounter Summary ---
Author Organization [facility] Address [address] [place] [address] Care Team Providers Care Senior Technical Specialist Name Role Phone Joleen Jacinto MD Primary Care Provider [phone] Encounter Details Date Type Department Care Team (Latest Contact Info) Description 08/28/2024 Travel Social History Tobacco Use Types Packs/Day Years [...] any time in the past 12 m [facility], were you homeless or living in a intermediate (including now)? No 03/14/2024 Utilities Answer Date [...] much Not at all 08/28/2024 12:57 PM Robyn Dejesus Feeling tired or having homer le energy [...] Robyn Jama Patient Health Questionnaire-9 Score 0 08/2024 12:57 PM EDT Robyn Jama * Calculated C-SSRS [...] filedocumented in this encounter Additional Health Concerns Assessment Noted Time PHQ-9 Depression Total Score: 0 08/29/19 25 12:57 PM EDT A fall risk assessment has been complete d for the patient 08/28/2024 12:57 PM EDT A Body Mass Index follow-up plan has been documented for the patient 08/28/2024 1:44 PM EDT documented as of this encounter Care Teams Senior Technical Specialist Relationship Specialty Start Date End Date Joleen Jacinto MD [address] [place] [address] PCP - General 07/05/20 documented as of this encounter
--- OUTSIDE RECORDS SUMMARY | 2024-10-25 14:55 | XMS_ITS | Encounter Summary ---
Author Organization Healthcare Address [address] [place] [address] Care Team Providers Care Campaign Consultant Name Role Phone Joleen Jacinto MD Primary Care Provider [phone] Encounter Details Date Type Department Care Team ([facility] st Contact Info) Description 08/19/2021 Outside Procedure External Location [address] [place] [address] Provider, [facility] Social History Tobacco Use Types Packs/Day Years [...] Procedure Name Priority Date/Time Associated Diagnosis Comments ECHO, ADULT TRANSTHORACIC COMPLETE W/ COLOR AND DOPPLER 08/19/2021 1:17 PM EDT documented in this encounter Results * Echo, Adult Transthoracic Complete w/ Color and Doppler (08/19/2021 1:17 PM EDT) Anatomical Region Laterality Modality Ultrasound 08/19/2021 1:17 PM EDT Narrative 08/20/2021 9:29 AM EDT [address] [address] Name: TIFFANY RUCKER Exam Date: 08/19/2021 : 1955 Age 65 Gender: F Physician: GUIDO PEREZ Facility: [facility] Facility HSV: Outpatient Exam: ECHO W SPEC COLOR FLOW Reason for Study: dyspnea on exertion SUMMARY Normal LV size with borderline normal function. The ejection fraction is 50-55%. Normal diastolic function. INTERPRETATION DETAIL Fair quality study. Left ventricle: The left ventricle is normal in size with borderline normal systolic function. The ejection fraction is 50-55%. There is normal LV wall thickness. The left ventricular wall motion is normal. Mitral filling indicates Normal diastolic function. Left atrium: The left atrium is normal. LA volume: 30.3mL, LA volume index: 20.1mL/mA . Right ventricle: The right ventricle is normal in size with normal function. Right atrium: The right atrium is normal. Mitral valve: The mitral valve is normal. There is no mitral stenosis. There is no mitral regurgitation. Aortic valve: The aortic valve is normal and trileaflet. There is no aortic stenosis. AV peak sbleqofg=657vb/sec. There is no aortic regurgitation. Tricuspid valve: The tricuspid valve is normal. There is no tricuspid regurgitation, so PA pressure cannot be estimated. Pulmonic valve: The pulmonic valve is normal. There is physiologic pulmonic regurgitation. Pericardium: The pericardium is normal. Interatrial septum: The interatrial septum is normal. Aorta: The aortic root is normal. Vena Cava: The inferior vena cava is normal. MEASUREMENTS Left Ventricle IVSd: 0.63cm (0.6-1.1cm) PWd: 0.63cm (0.6-1.1cm) Mass Mary: 81g LVMI: 54g/mA (>50-95g/m) LVIDd: 4.40cm (3.7-5.6 cm) LVIDdI: 2.91cm/m2 LVIDs: 3.11cm (1.8-4.2 cm) LVIDsI: 2.06cm/m2 RWT: 0.29 ( E to A: 0.74 (0.6-2) E-e prime med: 6.20 E-e prime lat: 4.43 Decel: 153.00ms (168-232ms) Right Ventricle Mid RV Nicki: 3.0cm (2.7-3.3cm) Max Valve Velocities AV peak rosario: 120cm/sec LVOT: 90.30cm/sec [facility] Legally authenticated by WILLEM Irvin 2021-08-20 09:18:45 LA vol: 30.3mL ENA: 20.1mL/mA (16-28ml/m2) Guido Perez MD Dictated By: GUIDO PEREZ Transcribed By: Transcribed On: 08/20/2021 9:18 AM Electronically signed by: GUIDO PEREZ 08/20/2021 Thank you for referring TIFFANY RUCKER to [facility]. Legally authenticated by WILLEM Irvin 2021-08-20 09:18:45 Procedure Note Provider, [facility] - 08/20/[address] [address] Name: TIFFANY RUCKER Exam Date: 08/19/2021 : 1955 Age 65 Gender: F Physician: GUIDO PEREZ Facility: [facility] Facility HSV: Outpatient Exam: ECHO W SPEC COLOR FLOW Reason for Study: dyspnea on exertion SUMMARY Normal LV size with borderline normal function. The ejection fraction is 50-55%. Normal diastolic function. INTERPRETATION DETAIL Fair quality study. Left ventricle: The left ventricle is normal in size with borderline normal systolic function. The ejection fraction is 50-55%. There is normal LV wall thickness. The left ventricular wall motion is normal. Mitral filling indicates Normal diastolic function. Left atrium: The left atrium is normal. LA volume: 30.3mL, LA volume index: 20.1mL/mA . Right ventricle: The right ventricle is normal in size with normal function. Right atrium: The right atrium is normal. Mitral valve: The mitral valve is normal. There is no mitral stenosis. There is no mitral regurgitation. Aortic valve: The aortic valve is normal and trileaflet. There is no aortic stenosis. AV peak llwuvuim=790gd/sec. There is no aortic regurgitation. Tricuspid valve: The tricuspid valve is normal. There is no tricuspid regurgitation, so PA pressure cannot be estimated. Pulmonic valve: The pulmonic valve is normal. There is physiologic pulmonic regurgitation. Pericardium: The pericardium is normal. Interatrial septum: The interatrial septum is normal. Aorta: The aortic root is normal. Vena Cava: The inferior vena cava is normal. MEASUREMENTS Left Ventricle IVSd: 0.63cm (0.6-1.1cm) PWd: 0.63cm (0.6-1.1cm) Mass Mary: 81g LVMI: 54g/mA (>50-95g/m) LVIDd: 4.40cm (3.7-5.6 cm) LVIDdI: 2.91cm/m2 LVIDs: 3.11cm (1.8-4.2 cm) LVIDsI: 2.06cm/m2 RWT: 0.29 ( E to A: 0.74 (0.6-2) E-e prime med: 6.20 E-e prime lat: 4.43 Decel: 153.00ms (168-232ms) Right Ventricle Mid RV Nicki: 3.0cm (2.7-3.3cm) Max Valve Velocities AV peak rosario: 120cm/sec LVOT: 90.30cm/sec [facility] Legally authenticated by WILLEM Irvin 2021-08-20 09:18:45 LA vol: 30.3mL ENA: 20.1mL/mA (16-28ml/m2) Guido Perez MD Dictated By: GUIDO PEREZ Transcribed By: Transcribed On: 08/20/2021 9:18 AM Electronically signed by: GUIDO PEREZ 08/20/2021 Thank you for referring TIFFANY RUCKER to [facility]. Legally authenticated by WILLEM Irvin 2021-08-20 09:18:45 us Generic [place] Provider CV ECHO PROCEDURES F inal Result documented in this encounter Visit Diagnoses Not on filedocumented in this encounter Additional Health Concerns Infection Onset Date Last Indicated Resolved Time Influenza 03/14/2024 03/14/2024 04/11/2024 5:24 AM EST COVID-19 Rule-Out 07/20/2024 07/20/2024 07/20/2024 2:26 PM EDT Assessment Noted Time A fall risk assessment has been complete d for the patient 02/03/2021 1:43 PM EST documented as of this encounter Care Teams Campaign Consultant Relationship Specialty Start Date End Date Joleen Jacinto MD [address] [place] [id number] PCP - General 07/05/20 documented as of this encounter
--- OUTSIDE RECORDS SUMMARY | 2024-10-25 14:55 | XMS_ITS | Encounter Summary ---
Author Organization Healthcare Address [address] [place] [address] Care Team Providers Care Hand Drawer In Name Role Phone Joleen Jacinto MD Primary Care Provider [phone] Encounter Details Date Type Department Care Team ([facility] st Contact Info) Description 03/03/2021 Outside Procedure External Location [address] [place] [address] Joleen Jacinto MD [address] [place] [address] Social History Tobacco Use Types Packs/Day [...] PM EST documented as of this encounter Plan of Treatment Not on file documented as of this encounter Procedures Procedure Name Priority Date/Time Associated Diagnosis Comments MAMMOGRAPHY BREAST SCREENING TOMOSYNTHESIS BILATERAL 03/03/2021 1:38 PM EST documented in this encounter Results * Mammography Breast Screening Tomosynthesis Bilateral (03/03/2021 1:38 PM EST) Anatomical Region Laterality Modality Breast Bilateral Mammography 03/03/2021 1:38 PM EST Narrative 03/03/2021 4:34 [place] [address] Name: TIFFANY RUCKER Exam Date: 03/03/2021 : 1955 Age 65 Gender: F Physician: Joleen Jacinto Facility: [facility] Facility HSV: Outpatient Exam: MIRZA SCRN MAMMO W/CAD BILAT MAMMOGRAM SCREENING BILATERAL HISTORY: Routine screening exam. COMPARISON: 10/06/2017 and 12/09/2018. TECHNIQUE: Standard digital 2-D views with 3-D tomosynthesis. DENSITY: There are scattered areas of fibroglandular density. FINDINGS: Benign calcifications are noted bilaterally. Focal asymmetry in the left upper outer quadrant is stable. No mass, suspicious calcifications or architectural distortion is present. IMPRESSION: No mammographic evidence of malignancy. BI-RADS 2: Benign. RECOMMENDATION: Annual mammography. CAD was utilized during interpretation. The patient will be sent a letter from the mammography department with their mammography results. Dictated By: CHRISTAL LOPEZ Transcribed By: melony jiang Transcribed On: 03/03/2021 4:14 PM Electronically signed by: CHRISTAL LOPEZ 03/03/2021 Thank you for referring TIFFANY RUCKER to [facility]. Legally authenticated by JOHN ALFARO 2021-03-03 16:23:02 Procedure Note Provider, Generic [place] - 03/03/2021 [place] [address] Name: TIFFANY RUCKER Exam Date: 03/03/2021 : 1955 Age 65 Gender: F Physician: Joleen Jacinto Facility: [facility] Facility HSV: Outpatient Exam: MIRZA SCRN MAMMO W/CAD BILAT MAMMOGRAM SCREENING BILATERAL HISTORY: Routine screening exam. COMPARISON: 10/06/2017 and 12/09/2018. TECHNIQUE: Standard digital 2-D views with 3-D tomosynthesis. DENSITY: There are scattered areas of fibroglandular density. FINDINGS: Benign calcifications are noted bilaterally. Focal asymmetry inthe left upper outer quadrant is stable. No mass, suspicious calcificationsor architectural distortion is present. IMPRESSION: No mammographic evidence of malignancy. BI-RADS 2: Benign. RECOMMENDATION: Annual mammography. CAD was utilized during interpretation. The patient will be sent a letter from the mammography department withtheir mammography results. Dictated By: CHRISTAL LOPEZ Transcribed By: melony jiang Transcribed On: 03/03/2021 4:14 PM Electronically signed by: CHRISTAL LOPEZ 03/03/2021 Thank you for referring TIFFANY RUCKER to [facility]. Legally authenticated by JOHN AFLARO 2021-03-03 16:23:02 us Joleen Jacinto MD IMG BI PROCEDURES [...] documented as of this encounter Care Teams Hand Drawer In Relationship Specialty Start Date End Date Joleen Jacinto MD [address] [place] [address] PCP - General 07/05/20 documented as of this encounter
--- OUTSIDE RECORDS SUMMARY | 2024-10-25 14:55 | XMS_ITS | Encounter Summary ---
Author Organization Healthcare Address [address] [place] [address] Care Team Providers Care Bank Credit Card Collection Clerk Name Role Phone Joleen Jacinto MD Primary Care Provider [phone] Encounter Details Date Type Department Care Team ([facility] st Contact Info) Description 04/04/2021 Outside Procedure External Location [address] [place] [address] Provider, [facility] Social History Tobacco Use Types Packs/Day Years [...] Procedure Name Priority Date/Time Associated Diagnosis Comments US THYROID 04/04/2021 1:17 PM EST documented in this encounter Results * US Thyroid (04/04/2021 1:17 PM EST) Anatomical Region Laterality Modality Thyroid, Neck Ultrasound 04/04/2021 1:17 PM EST Narrative 04/04/2021 2:52 PM EST [address] [address] Name: TIFFANY RUCKER Exam Date: 04/04/2021 : 1955 Age 65 Gender: F Physician: Karson Guthrie Facility: [facility] Facility HSV: Outpatient Exam: THYROID US Ultrasound of the thyroid History: Thyroid nodule Comparison: 11/05/2017 Findings: Right lobe of the thyroid measures 4.7 x 2.5 x 2.0 cm. Left lobe thyroid measures 3.7 x 1.5 x 1.6 cm. Isthmus measures 0.2 cm. The thyroid gland is diffusely heterogeneous. There is a 2.9 x 1.6 x 2.0 cm hypoechoic mixed cystic and solid (mostly solid) TR 4 nodule identified in the right lobe of the thyroid. Impression: Dominant TR 4 which meets criteria for biopsy. Films reviewed , interpreted and dictated by Dr. Guerita Ceballos. Transcribed by Fredrick Ferrara PA-C. Dictated By: Jenn Headley Transcribed By: Jenn Ceballos Transcribed On: 04/04/2021 2:39 PM Electronically signed by: Jenn Headley 04/04/2021 Thank you for referring TIFFANY RUCKER to [facility]. Legally authenticated by ASHWINI BRONSON 2021-04-04 14:39:48 Procedure Note Provider, [facility] - 04/04/2021 [place] [address] Name: TIFFANY RUCKER Exam Date: 04/04/2021 : 1955 Age 65 Gender: F Physician: Karson Guthrie Facility: [facility] Facility HSV: Outpatient Exam: THYROID US Ultrasound of the thyroid History: Thyroid nodule Comparison: 11/05/2017 Findings: Right lobe of the thyroid measures 4.7 x 2.5 x 2.0 cm. Left lobe thyroid measures 3.7 x 1.5 x 1.6 cm. Isthmus measures 0.2 cm. The thyroid glandis diffusely heterogeneous. There is a 2.9 x 1.6 x 2.0 cm hypoechoic mixedcystic and solid (mostly solid) TR 4 nodule identified in the right lobe of the thyroid. Impression: Dominant TR 4 which meets criteria for biopsy. Films reviewed , interpreted and dictated by Dr. Guerita Ceballos. Transcribed by Fredrick Ferrara PA-C. Dictated By: Jenn Headley Transcribed By: Jenn Ceballos Transcribed On: 04/04/2021 2:39 PM Electronically signed by: Jenn Headley 04/04/2021 Thank you for referring TIFFANY RUCKER to [facility]. Legally authenticated by ASHWINI BRONSON 2021-04-04 14:39:48 us Generic [place] Provider IMG US PROCEDURES Fi nal Result documented in this [...] documented as of this encounter Care Teams Bank Credit Card Collection Clerk Relationship Specialty Start Date End Date oJleen Jacinto MD [address] [place] [address] PCP - General 07/05/20 documented as of this encounter
--- OUTSIDE RECORDS SUMMARY | 2024-10-25 14:55 | XMS_ITS | Encounter Summary ---
Author Organization Healthcare Address [address] [place] [address] Care Team Providers Care Vendor Analyst Name Role Phone Joleen Jacinto MD Primary Care Provider [phone] Encounter Details Date Type Department Care Team ([facility] st Contact Info) Description 01/07/2023 Orders Only External Location [address] [place] [address] Isidoro Hirsch MD [address] [facility] [address] [address] Social History Tobacco Use Types Packs/Day Years [...] Date/Time Associated Diagnosis Comments CT ANGIO CHEST 01/07/2023 6:58 PM EST documented in this encounter Results * CT Angio Chest (01/07/2023 6:58 PM EST) Anatomical Region Laterality Modality Chest Computed Tomogra phy 01/07/2023 6:58 PM EST Isidoro Hirsch MD [facility] CT PROCEDURES Final Result documented in this encounter Visit Diagnoses Not on filedocumented in this encounter Additional Health Concerns Infection Onset Date Last Indicated Resolved Time Influenza 03/14/2024 03/14/2024 04/11/2024 5:24 AM EST COVID-19 Rule-Out 07/20/2024 07/20/2024 07/20/2024 2:26 PM EDT Assessment Noted Time A fall risk assessment has been complete d for the patient 06/04/2022 10:23 AM EDT documented as of this encounter Care Teams Vendor Analyst Relationship Specialty Start Date End Date Joleen Jacinto MD [address] [place] [phone] PCP - General 07/05/20 documented as of this encounter
--- OUTSIDE RECORDS SUMMARY | 2024-10-25 14:55 | XMS_ITS | Encounter Summary ---
Author Organization Healthcare Address [address] [place] [address] Care Team Providers Care Marketing Intelligence Analyst Name Role Phone Joleen Jacinto MD Primary Care Provider [phone] Reason for Visit * Reason Comments Med Refill Encounter Details Date Type Department Care Team (Late st Contact Info) Description 08/03/2020 Refill [facility] [address] [place] [address] Joleen Jacinto MD [address] [place] [address] Social History Tobacco Use Types Packs/Day Years Used Date Smoking Tobacco: Never Comments Unknown Sex and Gender Information Value [...] as of this encounter Care Teams Marketing Intelligence Analyst Relationship Specialty Start Date End Date Joleen Jacinto MD [address] [place] [address] PCP - General 07/05/20 documented as of this encounter
[2024-10-25 15:20] VITALS: PULSE 72; PULSE 77
[2024-10-25] MEDS: ALBUTEROL 0.083% 2.5 MG/3 ML NEB IH (15:20)
== END 2024-10-25 23:59 | disposition home or self-care (01) ==
LOC: RT 14:37
PROVIDERS: PCP Family Medicine; Visit Provider Internal Medicine Pulmonary Disease
DX: J44.9 Chronic obstructive pulmonary disease, unspecified (principal); R94.2 Abnormal results of pulmonary function studies
CPT/HCPCS: 94010; 94618; 94640

== ENCOUNTER → 2024-11-23 13:43 | Outpatient (RCR) | payer BC, SELFPAY | LOC: PULREHAB 13:43 | PROVIDERS: Visit Provider Internal Medicine Pulmonary Disease | DX: J44.9 Chronic obstructive pulmonary disease, unspecified (principal) | CPT/HCPCS: 94626 ==